=== PATIENT | female | born 1935 | race Caucasian/White ===

== ENCOUNTER → 2016-06-25 | Outpatient (REF) | payer MEDICARE ==
[~2016-06-25] MED LIST: ATEN50TA2 PO; CINA30TA PO; COUM2.5T11 PO; FLOM5CAP PO; MAGN400T5 PO; MULTCAP PO; NATU400T PO; OCUVTAB PO; PERCOCET PO; POTA10TAB PO; SIMV40TA2 PO; TORS5TAB2 PO; XARE15TA PO; ipratropium bromide
[2016-06-25 15:04] LABS: RBC, URINE 15-20 /hpf (0-3)
[2016-06-25 15:05] LABS: BACTERIA, URINE SMALL AMOUNT; HYALINE CAST, URINE 0-1 /lpf (0-1); MICROSCOPIC EXAM PERFORMED; SQUAMOUS EPITHELIAL CELL URINE SMALL AMOUNT /hpf (SMALL AMT)
== END ==
LOC: M LAB REF 13:21
PROVIDERS: ATTEND Nurse Practitioner Family
DX: R31.9 Hematuria, unspecified (principal)

== ENCOUNTER → 2016-07-31 | Outpatient (REF) | payer MEDICARE ==
[2016-07-31 16:01] LABS: ALBUMIN 3.5 GM/DL (3.2-5.2); ALBUMIN/GLOBULIN RATIO 1.06 (1.00-1.93); BILIRUBIN,TOTAL 0.3 MG/DL (0.2-1.0); CREATININE FOR GFR 1.87 MG/DL (0.55-1.02); GLOMERULAR FILTRATION RATE 27.5 (>32); TOTAL PROTEIN 6.8 GM/DL (6.4-8.2)
[2016-07-31 16:14] LABS: MEAN CORPUSCULAR HEMOGLOBIN 32.8 pg (27.0-33.0); MEAN CORPUSCULAR HGB CONC 32.8 g/dl (32.0-36.5); MEAN CORPUSCULAR VOLUME 99.9 fl (80.0-96.0); RED CELL DISTRIBUTION WIDTH 11.6 % (11.5-14.5)
== END ==
LOC: M SFHCPLAZ 11:28
PROVIDERS: ATTEND Family Medicine
DX: N18.3 Chronic kidney disease, stage 3 (moderate) (principal); E78.5 Hyperlipidemia, unspecified

== ENCOUNTER → 2016-10-19 | Outpatient (REF) | payer MEDICARE | LOC: M LAB REF 16:50 | PROVIDERS: ATTEND Internal Medicine Nephrology | DX: N39.0 Urinary tract infection, site not specified (principal) ==

== ENCOUNTER → 2016-10-29 | Outpatient (CLI) | payer MEDICARE ==
--- NOTE | 2016-10-29 17:29 | REP ---
CT abdomen and pelvis without IV or oral contrast: Renal stone protocol. History: Kidney calculus. Comparison CT study March 13, 2013. This showed multiple right renal calculi. 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 The lung bases are essentially clear. The liver and spleen remain normal in size and homogeneous in texture. No adrenal lesion is seen on either side. There is a focal calcification in the tail of the pancreas as before. Multiple bilateral renal cysts are seen. No hydronephrosis is seen. There are five identifiable calcific densities in the right kidney consistent with nephrolithiasis. Some cortical scarring is seen in the right kidney. These findings are essentially unchanged from the comparison CT study 2012. There is a slightly hyperdense cyst at the left mid kidney. This measures 2.4 cm in diameter. This has decreased in size from the [address] study when it measured 3.7 cm. No retroperitoneal mass or adenopathy is observed. There are colon sutures in the right lower abdomen again noted. The patient is status post hysterectomy. No pelvic mass or adenopathy is observed. No abdominal wall defect is seen. No bladder calculus is observed. Impression: 1. Intrarenal nephrolithiasis on the right again noted. No hydronephrosis seen on either side. 2. Multiple bilateral renal cysts. Mild cortical scarring right kidney. 3. No other significant finding. Signed by Donis Martinez MD 10/30/2016 07:54 A
== END ==
LOC: M RAD 16:26
PROVIDERS: ATTEND Internal Medicine Nephrology
DX: N20.0 Calculus of kidney (principal); N28.1 Cyst of kidney, acquired

== ENCOUNTER 2016-11-24 06:28 | Emergency (ER) | payer MEDICARE ==
[~2016-11-24] VITALS: Ht 157.5 cm; Wt 66.7 kg
[~2016-11-24 06:28] MED LIST changes: -COUM2.5T11 PO; +COUM2.5T17 PO
[2016-11-24] MEDS ORDERED: NORCO, ANEXSIA 5/325MG TABLET (HYDROcodone/ACETAMINOPHEN) PO ONE (07:15)
[2016-11-24] MEDS ORDERED: METAL LOCK LOOP XX ONE (08:15)
--- NOTE | 2016-11-24 08:30 | REP ---
Clinical: Pain . Technique: Internal rotation, external rotation, and Y view left shoulder . Findings: No acute fracture or dislocation. The acromioclavicular and glenohumeral joints are intact. No periarticular calcifications or significant degenerative changes are appreciated. Sub acromial space is normal. Surrounding soft tissues are unremarkable. Impression: Normal age-appropriate left shoulder radiographs. Signed by Bc Franks MD 11/24/2016 08:22 A
[2016-11-24] MEDS ORDERED: NORCOTAB PO ×2 (09:10→09:13)
--- NOTE | 2016-11-24 09:11 | REP ---
Clinical: Neck pain. Technique: Axial noncontrast images from the skull base to the thoracic inlet with coronal and sagittal re-formations. Findings: No acute fracture / compression injury or subluxation is appreciated. Alignment is maintained. Advanced degenerative changes at the C4-5, C5-6, C6-7 level include osteophytosis, endplate sclerosis/heterogeneity and disc space narrowing with associated small posterior disc bulges and uncovertebral hypertrophy. Small associated posterior disc bulges at the C5-6 and C6-7 levels cause mild canal stenosis to approximately 8.5 mm in the AP diameter. Moderate degenerative changes are also noted throughout the remainder of the examination without evidence for posterior disc bulge or canal stenosis. Impression: Degenerative changes as described above. Signed by cB Franks MD 11/24/2016 09:03 A
[2016-11-24 09:29] VITALS: BP 128/70
[2017-03-19] MEDS ORDERED: OCUVTAB PO (13:23)
[2017-03-19] MEDS ORDERED: VITA500T88 PO (13:23)
[2017-03-19] MEDS ORDERED: ATEN25TA PO (13:23)
[2017-03-19] MEDS ORDERED: CINA30TA PO (13:23)
[2017-03-19] MEDS ORDERED: POTA10TAB PO (13:23)
[2017-03-19] MEDS ORDERED: SIMV40TA2 PO (13:25)
[2017-03-19] MEDS ORDERED: XARE15TA PO (13:25)
[2017-03-19] MEDS ORDERED: TORS5TAB2 PO (13:25)
== END 2016-11-24 09:30 | disposition home or self-care (01) ==
LOC: M ED 06:28
DX: M50.30 Other cervical disc degeneration, unspecified cervical region (principal); M19.012 Primary osteoarthritis, left shoulder; M79.1 Myalgia; I12.9 Hypertensive chronic kidney disease with stage 1 through stage 4 chronic kidney disease, or unspecified chronic kidney disease; I48.91 Unspecified atrial fibrillation; N18.9 Chronic kidney disease, unspecified; E78.5 Hyperlipidemia, unspecified; Z87.891 Personal history of nicotine dependence; Z79.899 Other long term (current) drug therapy; Z79.01 Long term (current) use of anticoagulants

== ENCOUNTER → 2017-02-12 | Outpatient (REF) | payer MEDICARE ==
[~2017-02-12] MED LIST changes: +ASCO25TA PO; +ATEN25TA PO; +NORCOTAB PO; +VITA500T88 PO
== END ==
LOC: M SFHCADAM 12:03
PROVIDERS: ATTEND Family Medicine
DX: N18.3 Chronic kidney disease, stage 3 (moderate) (principal); E78.5 Hyperlipidemia, unspecified

== ENCOUNTER 2017-02-27 10:49 | Inpatient (IN) | payer MEDICARE ==
[~2017-02-27] VITALS: Ht 157.5 cm; Wt 70.5 kg
[~2017-02-27 10:49] MED LIST changes: -ASCO25TA PO; -ATEN25TA PO; -VITA500T88 PO
[2017-02-27 11:26] LABS: BASO # 0.1 10^3/uL (0.0-0.2); BASO % 0.5 % (0.0-1.0); EOS # 0.1 10^3/uL (0.0-0.50); IMMATURE GRANULOCYTE % 0.2 % (0-0); LYMPH # 1.5 10^3/uL (1.5-4.5); LYMPH % 13.8 % (24.0-44.0); MEAN CORPUSCULAR HEMOGLOBIN 32.4 pg (27.0-33.0); MEAN CORPUSCULAR VOLUME 98.1 fl (80.0-96.0); MONO # 0.9 10^3/uL (0.0-0.8); MONO % 8.3 % (0.0-5.0); NEUTROPHILS # 8.4 10^3/uL (1.8-7.7); NEUTROPHILS % 76.2 % (36.0-66.0); PLATELET COUNT, AUTOMATED 219 10^3/uL (150-450); RED CELL DISTRIBUTION WIDTH 11.9 % (11.5-14.5)
[2017-02-27 11:29] LABS: ADD MANUAL DIFFER NO; DIFF SLIDE NUMBER 208
[2017-02-27 11:34] LABS: INR 1.68
[2017-02-27 11:47] LABS: CALCIUM LEVEL 8.4 MG/DL (8.8-10.2); CREATININE FOR GFR 1.59 MG/DL (0.55-1.02); FREE T4 1.13 NG/DL (0.76-1.46); GLOMERULAR FILTRATION RATE 33.1 (>32); MAGNESIUM LEVEL 2.2 MG/DL (1.8-2.4); POTASSIUM SERUM 4.5 MEQ/L (3.5-5.1)
--- NOTE | 2017-02-27 11:56 | REP ---
Chest x-ray: Single upright AP view. History: Syncope. Comparison study: January 01, 2014. Findings: EKG monitoring electrodes overlie the chest. There is a granulomatous density projecting in the left perihilar region unchanged from the 2014 study. The heart is mildly enlarged unchanged. Pulmonary vasculature is not increased. The aorta is calcific and slightly tortuous. Pleural angles are sharp. No significant bony abnormality. Impression: Mildly enlarged heart. Old granulomatous calcification on the left. No acute disease. Signed by Donis Martinez MD 02/27/2017 01:26 P
--- NOTE | 2017-02-27 11:57 | REP ---
CT Head without contrast HISTORY: Syncope COMPARISON: None Areas of decreased attenuation are present in the periventricular white matter. This represents small-vessel ischemic disease. There is no intraparenchymal hemorrhage, acute infarct, mass or midline shift. The ventricular system and cortical sulci are dilated consistent with minimal volume loss. There is no extra cerebral collection. There is no fracture. The visualized sinuses are clear. IMPRESSION: 1. Small vessel ischemic disease. 2. Minimal volume loss. Signed by Mohinder Ruiz MD 02/27/2017 11:48 A
--- NOTE | 2017-02-27 12:11 | REP ---
CT CERVICAL SPINE WITHOUT CONTRAST: HISTORY: Syncope. COMPARISON: 11/24/2016. There is no acute fracture or subluxation. Disc bulges are present at the C2-3 and C3-4 levels. Disc bulges with associated osteophyte formation are present at the C4-5 through C6-7 levels. There is minimal narrowing of the spinal canal. Uncinate process and/or facet hypertrophy are present at the C2-3 through C7-T1 levels. These findings produce minimal to mild narrowing of the neural foramina. The C4-5 through C6-7 intervertebral discs are decreased in height consistent with disc degeneration. Calcifications are present in the tonsils. This is secondary to previous inflammatory disease. IMPRESSION: 1. There is no acute fracture or subluxation. 2. There is cervical spondylosis at the C2-3 through C7-T1 levels. Signed by Mohinder Ruiz MD 02/27/2017 12:13 P
[2017-02-27] MEDS ORDERED: XARE15TA PO (12:15)
--- NOTE | 2017-02-27 14:07 | HPE ---
DATE OF ADMISSION: 02/27/2017 PRIMARY CARE PROVIDER: Dr. Little [employer]ICE [employer]Y PROGRAM COORDINATOR: Dr. García CHIEF COMPLAINT: Found down. HISTORY OF PRESENT ILLNESS: The patient is an 81-year-old female who lives at home alone. She is known to have memory impairment. Her daughter calls her once a day and checks on her quite frequently, setting up her pill bottle. When the last the patient was checked upon, a lot of her medications had not been taken as prescribed, and the patient told her daughter that she had forgotten to take them. She does not have any home health services. At the present time, she lives alone. The patient herself tells me that she wanted to take her dog for a walk at approximately 10:00 a.m. this morning. She remembers getting a little bit woozy and falling down. She denies chest pressure, shortness of breath prior to the episode. She was reportedly found down by a neighbor with the dog running around the front yard. The dog was put in the house and the patient was awake and conscious although down face first. She was helped up by her neighbor and the patient was brought to the emergency room. In the emergency room at this time, the patient is oriented to place. She knows that she is in the emergency room. She knows her name. Her daughter is present at the bedside with her. The patient believes that it is 2013 and that it is January. She is unable to recall the president's name, however, she knows the day of the week and that it is Saturday. At the present time, she has no specific complaints. She does not feel dizzy or lightheadedness, shortness of breath or chest pressure at the time. She reportedly had one episode of emesis in the ambulance en route. However, at the present time, she denies any nausea. She denies feeling sick at all in the last several days with no change in bladder or bowel habits or any sick contacts or cough. PAST MEDICAL HISTORY: 1. "Memory issues." 2. Chronic kidney disease. 3. Atrial fibrillation. 4. Osteoporosis . 5. Dyslipidemia. 6. Hypertension. 7. History of a collapsed lung. 8. Hemicolectomy. ALLERGIES: REMERON. PAST SURGICAL HISTORY: 1. Total abdominal hysterectomy. 2. Bilateral salpingo-oophorectomy. 3. Appendectomy. 4. Breast lumpectomy. 5. Basal cell skin cancer removal. 6. Multiple colonoscopies with the most recent one in 2008. 7. Right hemicolectomy. 8. Right cataract surgery. SOCIAL HISTORY: She is a never smoker. Healthcare proxy is her daughter Sachi. The patient is retired. Her recently and she lost a son recently as well. HOME MEDICATIONS: - Sensipar 30 mg four times a week - atenolol 50 mg at night - multivitamin one tablet daily - potassium citrate 1080 mg by mouth three times a day - Xarelto 50 mg daily - simvastatin 40 mg at night - Flomax 0.4 mg daily - torsemide 2.5 mg daily FAMILY HISTORY: Noncontributory. REVIEW OF SYSTEMS: Negative other than history of present illness. PHYSICAL EXAMINATION: VITAL SIGNS: Temperature 97.7, pulse 79, respiratory rate 18, blood pressure 164/106, oxygen saturation 92% on room air. GENERAL: She is a pleasant, elderly, female sitting at the edge of the bed. She does not appear to be in any acute distress whatsoever at this time. She is smiling and conversant. Speaks in complete sentences. HEENT: Cranial nerves II through XII appear to be grossly intact. There is no visible evidence of trauma. Normocephalic, atraumatic. She has moist mucous membranes. No elevation in central venous pressure. CARDIOVASCULAR EXAM: S1, S2. Irregularly irregular. No additional heart sounds appreciated. RESPIRATORY EXAM: Clear. ABDOMINAL EXAM: Bowel sounds present. The abdomen is soft. EXTREMITIES: No clubbing, cyanosis, or edema. She is up and ambulating around the room independently. LABORATORY DATA: WBC 11.0, hemoglobin 13.3, MCV 98.1, platelet count 219. Chemistry panel: Sodium 144, potassium 4.5, chloride 109, bicarbonate 29, BUN 24, creatinine 1.5, approximately at her baseline. One set of cardiac enzymes is negative. She has a TSH within normal limits. IMAGING: CT scan of the head revealed small vessel ischemic disease, minimal volume loss. Chest x-ray revealed mildly enlarged heart. Old granulomatous calcifications on the left. No acute disease. Cervical spine CT revealed no acute fracture, subluxation. Cervical spondylosis of C2-3 through C7-T1. ASSESSMENT AND PLAN: This is an 81-year-old female status post unwitnessed syncopal episode. 1. Unwitnessed syncope. The etiology remains unclear. She has not been taking medication regularly. She has memory impairment. She does not remember the incident quite well. As such, she is being admitted to the progressive care unit (PCU). She has a history of atrial fibrillation. We will monitor her for pauses or bradyarrhythmias. Continue with her rate control with holding parameters. I will also check a MRI of the brain and recheck an EKG in the morning. Have her work with physical therapy (PT). Patient and family services (PFS) consult was placed. I think she would benefit from potential home services. Echocardiogram has been ordered as well. It is certainly possible that she may have inadvertently taken the wrong medication or wrong dosage, which could be causing this event. We will check orthostatic vital signs as well. 2. Memory issues. The patient would likely benefit from more help at home at the very least. She is mildly disoriented, as outlined in the history of present illness. She likely has dementia. She denies depression. Rule out other possible etiologies. Check RPR, B12, MRI of the brain, liver function tests. 3. Chronic kidney disease. Approximately at her baseline. Continue with her home diuretic and potassium supplementation. The patient has secondary hyperparathyroidism. 4. Atrial fibrillation. As outlined above she is on atenolol. She is anticoagulated with Xarelto. Pending physical therapy (PT) evaluation. If she continues to be a fall risk, we may need to weigh risks and benefits for continuing anticoagulation. 5. Bladder dysfunction. Continue with Flomax. 6. Dyslipidemia. Continue with simvastatin. 7. Deep vein thrombosis (DVT) prophylaxis. The patient is on Xarelto. DISPOSITION: The patient is admitted to Dr. Little's service, who will continue following the patient at 7:00 a.m.
[2017-02-27 14:23] LABS: ALBUMIN 3.4 GM/DL (3.2-5.2); ALBUMIN/GLOBULIN RATIO 0.97 (1.00-1.93); ALKALINE PHOSPHATASE 100 U/L (45-117); ALT/SGPT 33 U/L (12-78); AST/SGOT 64 U/L (15-37); BILIRUBIN,DIRECT 0.1 MG/DL (0.0-0.2); BILIRUBIN,TOTAL 0.4 MG/DL (0.2-1.0); TOTAL PROTEIN 6.9 GM/DL (6.4-8.2)
[2017-02-27 14:40] LABS: FOLATE 22.8 NG/ML (>5.4); VITAMIN B12 LEVEL 451 PG/ML (247-911)
[2017-02-27 15:04] LABS: METHADONE URINE NEGATIVE (NEGATIVE)
[2017-02-27 16:00] VITALS: BP_SYST 126; BP_SYST 134; BP_SYST 78; BP_DIAS 141; BP_DIAS 60; BP_DIAS 76
[2017-02-27] MEDS: ACETAMINOPHEN TAB 650MG DOSE (2X325MG) PO PRN (18:22)
[2017-02-27 20:00] VITALS: BP 124/60
[2017-02-27] MEDS: SIMVASTATIN 40 MG TAB PO SCH (20:09)
[2017-02-27] MEDS: POTASSIUM CITRATE 1080 MG (10MEQ) TAB PO SCH (20:09)
[2017-02-27] MEDS ORDERED: ATENOLOL 50 MG TAB PO SCH (21:00)
--- NOTE | 2017-02-27 23:30 | REPUSA ---
MRI of the brain Clinical history: memory changes. Technique: Multiecho multiplanar MRI images of the brain were obtained without administration of cont rast. Diffusion weighted images with ADC mapping was also obtained. Findings: The ventricles and sulci are symmetric bilaterally. The brain parenchyma demonstrates uniform and nor mal signal on all sequences. There is no midline shift, mass effect, or extra-axial fluid collection. The midline intracranial structures do not demonstrate any gross abnormalities. The cervical cranial junction is intact. The orbits are unremarkable. The visualized paranasal sinuses and mastoid air ce lls are clear. The osseous structures and superficial soft tissues are unremarkable. The vascular str uctures demonstrate appropriate flow voids. Impression: Normal MRI of the Brain.
[2017-02-28] VITALS: BP_SYST 124; BP_SYST 145; BP_SYST 155; BP_DIAS 60; BP_DIAS 71; BP_DIAS 75
[2017-02-28 00:50] LABS: CALCIUM LEVEL 8.3 MG/DL (8.8-10.2); CREATININE FOR GFR 1.63 MG/DL (0.55-1.02); GLOMERULAR FILTRATION RATE 32.2 (>32)
[2017-02-28] MEDS: ACETAMINOPHEN TAB 650MG DOSE (2X325MG) PO PRN (01:52)
[2017-02-28 02:08] LABS: ABG BASE EXCESS 3.3 (-2.0-2.0); ABG HCO3 26.2 MEQ/L (22.0-26.0); ABG PARTIAL PRESSURE CO2 34.6 mmHg (35.0-45.0); ABG PARTIAL PRESSURE O2 72.3 mmHg (75.0-100.0); ABG STANDARD HCO3 27.3 MEQ/L (22.0-26.0); ABG TOTAL CO2 27.3 MEQ/L (23.0-31.0); ABG pH (ARTERIAL) 7.497 UNITS (7.350-7.450)
[2017-02-28 04:00] VITALS: BP 104/71
[2017-02-28 05:44] LABS: MEAN CORPUSCULAR HEMOGLOBIN 31.7 pg (27.0-33.0); MEAN CORPUSCULAR HGB CONC 32.6 g/dl (32.0-36.5); MEAN CORPUSCULAR VOLUME 97.1 fl (80.0-96.0); RED CELL DISTRIBUTION WIDTH 11.9 % (11.5-14.5); WHITE BLOOD COUNT 9.2 10^3/uL (4.0-10.0)
[2017-02-28 06:12] LABS: CALCIUM LEVEL 8.1 MG/DL (8.8-10.2); CREATININE FOR GFR 1.58 MG/DL (0.55-1.02); GLOMERULAR FILTRATION RATE 33.3 (>32); POTASSIUM SERUM 4.3 MEQ/L (3.5-5.1)
[2017-02-28 08:00] VITALS: BP 133/75
[2017-02-28] MEDS ORDERED: RIVAROXABAN 15 MG TAB (XARELTO) PO SCH (09:00)
[2017-02-28] MEDS ORDERED: TAMSULOSIN 0.4 MG CAP PO SCH (09:00)
[2017-02-28] MEDS: TORSEMIDE 5MG TABLET PO SCH (09:58)
[2017-02-28] MEDS: OCUVITE 1 TAB PO SCH (09:59)
[2017-02-28] MEDS: POTASSIUM CITRATE 1080 MG (10MEQ) TAB PO SCH ×3 (09:59→20:44)
[2017-02-28 12:00] VITALS: BP_SYST 114; BP_SYST 138; BP_SYST 143; BP_DIAS 81; BP_DIAS 88; BP_DIAS 95
--- NOTE | 2017-02-28 12:09 | IPN ---
DATE: 02/28/2017 Queenie is seen in the progressive care unit (PCU). She is admitted with syncope. She was out walking her dog and was found face down after suddenly collapsing. She has no memory of this. Apparently, someone saw her from a distance go down. On telemetry, she has had a 2.6 second pause. Past medical history shows atrial fibrillation. She had a Holter monitor 02/05/2017. Heart rates generally were well controlled. She is on atenolol for rate control and Xarelto for thromboembolic prophylaxis. She has a history of hypertension, chronic kidney disease Stage III followed by Dr. García, memory loss of mini mental status exam score of 27 over 30 last done 03/10/2017. Physical Exam: 133/75. Pulse 65. Respiratory rate 18. 96% oxygen saturation. General Appearance: She is resting comfortably in bed. No jugular venous distention (JVD). Lungs clear. Heart regular rate and rhythm. Rate around 70. Abdomen soft, nontender, no masses. No peripheral edema. Labs: Reviewed. They were unremarkable. Telemetry was reviewed. She had a 2.6 second pause. IMPRESSION: Syncope, probably from bradycardia/tachybrady syndrome. PLAN: 1. Consult [facility]. They have followed her previously. Will stop the atenolol. Monitor her heart rate off of this. She may well need pacemaker for bradycardia and atenolol or other beta jeniffer to control tachycardia. Her underlying rhythm is atrial fibrillation. Continue Xarelto for thromboembolic prophylaxis until decision is made about pacemaker. 2. Hyperlipidemia. Continue her Zocor 40 mg daily. 3. Mild memory loss. She is competent to make her own decisions.
[2017-02-28 16:00] VITALS: BP 140/84
--- NOTE | 2017-02-28 17:32 | CR ---
DATE OF CONSULTATION: 02/28/2017 REASON FOR CONSULTATION: 1. Syncope. 2. Tachycardia-bradycardia syndrome. REFERRING PHYSICIAN: Dr. Jose Guadalupe Little HISTORY OF THE PRESENT ILLNESS: Queenie Eric is a pleasant 81-year-old woman who has longstanding persistent atrial fibrillation (chronic atrial fibrillation) for several years. She is maintained on atenolol for heart rate control and on Xarelto. On the morning of 02/27/2017, she had sudden loss of consciousness without any warning that she could recall. She was found by a bystander and emergency medical services (EMS) services was called. On telemetry in the progressive care unit today, she was noted to have a 2.64 second pause at 10:56 a.m. today (02/28/2017). Consequently, atenolol was placed on hold and cardiology consultation was placed for consideration of a permanent pacemaker for tachycardia-bradycardia syndrome. The patient reports that this is the first time and only time that she has ever lost consciousness. There was no preceding prodrome that she could recall. She did not sustain any significant injuries. She is fairly sedentary but denies any shortness of breath during her ordinary activities of daily living. No orthopnea or paroxysmal nocturnal dyspnea (PND). No leg or ankle swelling. She denies any chest pain, pressure, tightness, heaviness with or without activity. No palpitations. No embolic events. No intermittent claudication. No bleeding problems. OTHER PAST MEDICAL AND SURGICAL HISTORY: Mild dementia. Chronic kidney disease. Chronic atrial fibrillation. Osteoporosis. Dyslipidemia. Systemic hypertension. History of collapsed lung. Hemicolectomy. Total abdominal hysterectomy. Bilateral salpingo-oophorectomy. Status post appendectomy. Prior breast lumpectomy. Removal of basal cell carcinoma. Multiple colonoscopies, the last of which was in 2008. Right hemicolectomy. Right cataract surgery. Kidney stones. PRIOR NONINVASIVE CARDIAC STRESS TESTING SUMMARIZED FOLLOWS: Treadmill stress SPECT myocardial perfusion imaging study for evaluation of abnormal ECG performed December 2009 showed reduced exercise capacity with patient attaining only 5.8 METs, limited by dyspnea and leg fatigue. No anginal symptoms. ECG portion was inconclusive due to presence of baseline repolarization abnormalities. Normal stress SPECT myocardial perfusion. Normal pulmonary uptake at peak exercise. Normal left ventricular (LV) regional wall motion and LV systolic function. Holter monitor, 02/13/2017, while on atenolol 50 mg daily showed atrial fibrillation throughout with heart rate ranging from 61 to 134 beats per minute (BPM) with average heart rate of 80 BPM and no R-R intervals in excess of 2.0 seconds. Rare premature ventricular contractions (PVCs) including a few couplets and one ventricular couplet. Echocardiogram Doppler 02/15/2015 showed normal LV size, wall thickness and wall motion. Slightly dilated left atrium. Moderate mitral annular calcification without mitral stenosis; presence of moderate mitral regurgitation. Normal right atrial and right ventricular size. Suggestive of moderate elevation of pulmonary artery pressure. Moderate tricuspid regurgitation. Estimated RV systolic pressure 40 mmHg. Additional other past history apparently includes hyperparathyroidism and diastolic heart failure. MEDICATIONS PRIOR TO ADMISSION: - atenolol 50 mg nightly - Sensipar 30 mg four times per week - multivitamin one daily - potassium citrate 1080 mg three times a day - Xarelto 15 mg daily - simvastatin 40 mg nightly - tamsulosin 0.4 mg daily - torsemide 2.5 mg daily PATIENT'S CURRENT MEDICATIONS IN THE HOSPITAL ARE FOLLOWS: - atenolol 50 mg nightly is presently on hold (last dose at 8:10 p.m. on 02/27/2017). - multivitamin one daily - Xarelto 15 mg daily (last dose 02/28/2017 at 9:59 a.m.) - tamsulosin 0.4 mg daily - torsemide 2.5 mg daily - potassium citrate 1080 mg by mouth three times a day - simvastatin 40 mg nightly - acetaminophen 650 mg every 6 hours as needed FAMILY HISTORY: Premature coronary artery disease (mother of heart disease at age 59). SOCIAL HISTORY: . Lives alone. Retired. Independent with all activities of daily living. Lifetime nonsmoker. Rare intake of alcohol. No regular exercise. She is able to do housework. She is limited by fatigue and shortness of breath only if she attempts strenuous activity. REVIEW OF SYSTEMS: Wears glasses. Prior right cataract surgery. No cough, sputum or hemoptysis. No wheezes. Arthralgias and arthritis. No anxiety, panic attacks or depression. All other 10-point review of systems questions negative other than history of the present illness above. PHYSICAL EXAMINATION: Pleasant elderly woman who appears her chronologic age, who is not in any respiratory or psychologic distress. She appears overweight. Height 62 inches, weight 69.2 kg, body mass index (BMI) 27.9. No conjunctival pallor, scleral icterus or xanthomas. Some missing teeth and multiple dental fillings present. Oral mucosa was moist and without pallor or cyanosis. Jugular venous pulsations were at 3 cm. Trachea midline. No palpable thyroid. No clubbing, nail bed cyanosis, or splinter hemorrhages. No skin lesions, skin pallor, or icterus. Oriented to person, place and time. Mood and affect was normal. Curvature of the spine normal. Gait was not fully tested (patient on bed rest). Gross motor strength and tone normal. No abnormal muscle atrophy, fasciculations, or tremors. Respiratory expansion effort was good. No crackles or wheezes. No dullness to percussion. No palpable apex beat. No left parasternal lifts, heaves, thrills, or palpable heart sounds. First heart sound is variable in intensity. Second heart sound was normal. No S3 or murmurs are appreciated. No pericardial friction rubs. Carotids were normal in upstroke and volume. No carotid bruits. No palpable abdominal aorta. No abdominal bruits. Femoral pulses normal. Pedal pulses normal. No lower extremity edema. No varicose veins. Abdomen was mildly obese and was soft and nontender with normal bowel sounds. No hepatomegaly or splenomegaly by palpation. Liver span difficult to assess due to abdominal obesity. Stool for occult blood not presently indicated. Electrocardiogram 02/27/2017 at 11:01 a.m. shows atrial fibrillation, ventricular rate 72 beats per minute. I have independently visualized the patient's PA and lateral chest x-ray acquired 02/27/2017 at 11:31 a.m. It shows mild cardiomegaly. Calcification in the aortic arch. No pulmonary vascular redistribution. No interstitial or alveolar edema. No pleural effusions. Lung mason were clear and well inflated. Laboratory work 02/28/2017 shows WBC 9.2, hemoglobin 13.3, hematocrit 40.8, platelets 211. Sodium 144, potassium 4.3, chloride 106, CO2 31, BUN 24, creatinine 1.58, estimated GFR 33.3, glucose 89. Laboratory work 02/27/2017 shows TSH 1.930. ASSESSMENT AND PLAN: 1. Syncope. This patient's syncope is most likely due to tachycardia-bradycardia syndrome, especially in view of documentation of an R-R interval of 2.64 seconds observed earlier today while she was awake. 2. Sick sinus syndrome/tachycardia-bradycardia syndrome. This patient has ongoing need for negative dromotropic agents to control rapid ventricular response, and she has now been observed to have long pauses and just recently had an episode of syncope. Therefore, because of ongoing medical necessity for negative dromotropic agents, she should undergo implantation of a single permanent pacemaker. This was discussed with the patient, and she understands. The risks of pacemaker implantation were explained to the patient, including, but not all inclusive, infection (1%), bleeding, pneumothorax (1%), cardiac dysrhythmias, and cardiac perforation with cardiac tamponade (07/999). The patient was agreeable and signed the consent form. Xarelto will be held for 3 days prior to operating. She will then receive a single-chamber permanent pacemaker. 3. Longstanding persistent atrial fibrillation. The patient has chronic atrial fibrillation for several years. She is not bothered by any palpitations. No bleeding problems on Xarelto. The plan will be to restart Xarelto when safe to do so following implantation of the permanent pacemaker. She will continue on atenolol unless she has further pauses that exceed 4.0 seconds. 4. Nonrheumatic mitral valve regurgitation with previous documentation of moderate mitral regurgitation. Stable. 5. Systemic hypertension. Mildly elevated systolic blood pressures documented in hospital on a few occasions. On 02/27/2017, she was documented to have absence of any significant orthostatic blood pressure drop. I will restart atenolol unless she has recurrent pauses in excess of 4.0 seconds. I am really at a loss for why she is on tamsulosin, and I will discontinue this agent. Copies To: Dr. Chace Little
--- NOTE | 2017-02-28 19:23 | ECGEPIP ---
Stationary ECG Study [facility] Test Date: 2017-02-28 Pat Name: CHRIS WARREN Department: Room: [place] [address] Gender: F Event Organizer: CHRISTOPHER : [id number] Requested By: KAMRAN WAHL Order Number: [id number] Reading MD: Rosy Mendes Measurements Intervals [place] Rate: 70 P: [place]: 0 QRS: 29 QRSD: 86 T: 8 QT: 402 QTc: 434 Interpretive Statements ATRIAL FIBRILLATION ABNORMAL RHYTHM ECG SIMILAR 01/01/14 Electronically Signed On 02-28-2017 19:23:23 EDT by Rosy Mendes
--- NOTE | 2017-02-28 20:18 | ECHO ---
DATE OF PROCEDURE: 02/28/2017 REFERRING PHYSICIAN: Claudia Gonzalez MD CC: Dr. Jose Guadalupe Little CC: Dr. Chace Javier INDICATION: Syncope. HEIGHT: 62 inches WEIGHT: 152 pounds 2D MEASUREMENTS: Aortic root: 3.3 cm Proximal ascending aorta: 2.7 cm Left atrium: 4.4 cm Ventricular septum: 1.10 cm Posterior wall: 1.06 cm Left ventricle diastole: 4.0 cm Left ventricle systole: 2.3 cm LVOT: 2.1 cm Right ventricle: 4.2 cm Left atrial volume index: 49 mL/m2 Inferior vena cava: 1.8 cm DOPPLER MEASUREMENTS: Aortic valve velocity: 144 cm/s LVOT velocity: 85.0 cm/s LVOT VTI: 16.3 cm Moderate tricuspid regurgitation. Estimated right ventricle systolic pressure 48 mmHg assuming a right atrial pressure of 10 mmHg. Pulmonary acceleration time 165 ms. MITRAL ANNULAR TISSUE DOPPLER: E prime septal: 8.2 cm/s E prime lateral: 10.3 cm/s DESCRIPTION: Rhythm was atrial fibrillation with controlled ventricular response. This was a 2D, M-mode, color flow Doppler and pulse wave Doppler examination that included mitral annular tissue Doppler. No pericardial effusion. Image quality was fair. CONCLUSIONS: 1. Normal left ventricle internal dimensions and wall thickness. Normal regional left ventricle (LV) wall motion and wall thickening. Normal left ventricle (LV) systolic function. 2. Severe left atrial dilatation. 3. Mild mitral annular calcification. No mitral regurgitation. 4. Suggestive of moderate elevation of estimated right ventricle systolic pressure (48 mmHg). Moderate tricuspid regurgitation with structurally normal tricuspid leaflets. Normal right ventricle size and systolic function. Severe right atrial dilatation.
[2017-02-28 20:29] VITALS: BP_SYST 118; BP_SYST 120; BP_SYST 123; BP_DIAS 66; BP_DIAS 67; BP_DIAS 68
[2017-02-28] MEDS: SIMVASTATIN 40 MG TAB PO SCH (20:44)
[2017-02-28] MEDS: ATENOLOL 25 MG TAB PO SCH (20:45)
[2017-03-01] VITALS (9 sets, daily range): BP systolic 107–137; BP diastolic 58–82
[2017-03-01] MEDS ORDERED: SLF 3 ML SYR IV PRN (04:00)
--- NOTE | 2017-03-01 05:44 | ECGEPIP ---
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
[2017-03-01 06:10] LABS: MEAN CORPUSCULAR HEMOGLOBIN 31.7 pg (27.0-33.0); MEAN CORPUSCULAR HGB CONC 32.5 g/dl (32.0-36.5); MEAN CORPUSCULAR VOLUME 97.7 fl (80.0-96.0); RED CELL DISTRIBUTION WIDTH 11.9 % (11.5-14.5); WHITE BLOOD COUNT 7.9 10^3/uL (4.0-10.0)
[2017-03-01] MEDS: SLF 3 ML SYR IV SCH ×3 (06:29→21:42)
[2017-03-01 06:39] LABS: CALCIUM LEVEL 8.5 MG/DL (8.8-10.2); CREATININE FOR GFR 1.54 MG/DL (0.55-1.02); GLOMERULAR FILTRATION RATE 34.3 (>32); POTASSIUM SERUM 4.4 MEQ/L (3.5-5.1)
[2017-03-01] MEDS: OCUVITE 1 TAB PO SCH (11:12)
[2017-03-01] MEDS: TORSEMIDE 5MG TABLET PO SCH (11:12)
[2017-03-01] MEDS: POTASSIUM CITRATE 1080 MG (10MEQ) TAB PO SCH ×3 (11:13→21:41)
[2017-03-01] MEDS: ATENOLOL 25 MG TAB PO SCH ×2 (11:16→21:41)
--- NOTE | 2017-03-01 14:18 | IPN ---
DATE: 03/01/2017 Queenie is seen in the progressive care unit (PCU). She has had no recurrence of syncope. She was seen by Dr. Javier, appreciate his consultation. He agreed with need for a pacemaker. I met with the patient's daughter at length today. She has concerns about the patient's developing dementia, which we can deal with as an outpatient. Exam: Vital signs stable. Lungs clear. Heart regular without murmur. Abdomen soft, nontender. No masses. No peripheral edema. Telemetry was reviewed. Lab work stable from yesterday. IMPRESSION: 1. Tachybrady syndrome with syncope. Xarelto is on hold. Pacemaker planned after she has been off Xarelto for three days. 2. Atrial fibrillation. She will be able to restart her atenolol and Xarelto after pacemaker. 3. Dementia. We can deal with this as an outpatient. 4. Hypertension. Her atenolol has been restarted. Blood pressure is under good control.
[2017-03-01] MEDS: SIMVASTATIN 40 MG TAB PO SCH (21:41)
[2017-03-02 04:00] VITALS: BP 126/59
[2017-03-02 05:39] LABS: MEAN CORPUSCULAR HEMOGLOBIN 31.8 pg (27.0-33.0); MEAN CORPUSCULAR HGB CONC 32.6 g/dl (32.0-36.5); MEAN CORPUSCULAR VOLUME 97.6 fl (80.0-96.0); RED CELL DISTRIBUTION WIDTH 11.7 % (11.5-14.5); WHITE BLOOD COUNT 8.6 10^3/uL (4.0-10.0)
[2017-03-02 05:57] LABS: CALCIUM LEVEL 8.4 MG/DL (8.8-10.2); CREATININE FOR GFR 1.36 MG/DL (0.55-1.02); GLOMERULAR FILTRATION RATE 39.6 (>32); POTASSIUM SERUM 4.7 MEQ/L (3.5-5.1)
[2017-03-02] MEDS: SLF 3 ML SYR IV SCH ×3 (06:38→20:49)
[2017-03-02 08:10] VITALS: BP_SYST 135; BP_SYST 140; BP_DIAS 72; BP_DIAS 76; BP_DIAS 79
[2017-03-02] MEDS: ATENOLOL 25 MG TAB PO SCH ×2 (09:00→20:48)
[2017-03-02] MEDS: POTASSIUM CITRATE 1080 MG (10MEQ) TAB PO SCH ×3 (09:07→20:47)
[2017-03-02] MEDS: OCUVITE 1 TAB PO SCH (09:07)
[2017-03-02] MEDS: TORSEMIDE 5MG TABLET PO SCH (09:07)
[2017-03-02 12:15] VITALS: BP 141/79
[2017-03-02 16:00] VITALS: BP_SYST 134; BP_SYST 142; BP_SYST 156; BP_DIAS 67; BP_DIAS 83; BP_DIAS 84
[2017-03-02 20:00] VITALS: BP 142/70
[2017-03-02] MEDS: SIMVASTATIN 40 MG TAB PO SCH (20:48)
--- NOTE | 2017-03-02 21:10 | IPNPDOC ---
Subjective Date Seen The patient was seen on 03/02/17. Subjective Chief Complaint/HPI The patient is a 81-year-old female admitted with a reason for visit of Syncope. Events since last encounter She reports she been symptomatically stable today. She believes that her pacer will be placed tomorrow and she is a little anxious about this. She has no other acute complaints. General: Reports: Normal Appetite Pulmonary: Denies: Cough Cardiovascular: Denies: Chest Pain, Palpitations Hematologic: Denies: Bruising, Bleeding Excessively Psych: Reports: Mood Normal Objective Physical Examination General Exam: Positive: Alert, Cooperative, No Acute Distress Eye Exam: Positive: Conjunctiva & lids normal, Negative: Sclera icteric ENT Exam: Positive: Mucous membr. moist/pink Neck Exam: Negative: Lymphadenopathy Chest Exam: Positive: Clear to auscultation, Normal air movement Heart Exam: Positive: Rate Normal, Normal S1, Normal S2 Abdomen Exam: Positive: Normal bowel sounds, Soft, Negative: Tenderness Extremity Exam: Negative: Edema Psych Exam: Positive: Mood NL, Oriented x 3 Assessment /Plan Problems (1) Tachycardia-bradycardia syndrome Discussed With: Patient Problem Specific Plan: Consult Specialist Problem Text: She'll be having a pacemaker placed with Dr. Javier when she is off Xarelto for 3 days. That is likely to be tomorrow. (2) Atrial fibrillation Status: Chronic Response to Treatment: Stable Problem Text: She honestly sounded like she was in sinus rhythm to me today, however, auscultation is not an appropriate way to assess that. She certainly is at a reasonable rate right now. (3) Dementia Problem Text: She may have early dementia. This concern was raised by her daughter on admission. It will be dealt with in the outpatient setting by her primary care provider. (4) Hypertension Status: Chronic Response to Treatment: Controlled Problem Text: Reasonably controlled. Her atenolol has been restarted. Plan/VTE VTE Prophylaxis Ordered?: Yes (SCDs and TEDS) VTE Exclusion Pharmacological: Other (she is coming off Xarelto for a procedure ) VS, I&O, 24H, Fishbone Vital Signs/I&O Vital Signs Date Time Temp Pulse Resp B/P (MAP) Pulse Ox O2 Delivery O2 Flow Rate FiO2 03/02/17 20:48 93 142/70 03/02/17 20:00 98.3 20 97 Room Air I&O- Last 24 Hours up to 6 AM 03/03/17 05:59 Intake Total 1140 ml Output Total 350 ml Balance 790 ml Laboratory Data 24H LABS Laboratory Tests 2 03/02/17 04:50: Anion Gap 4L, Glomerular Filtration Rate 39.6, Blood Urea Nitrogen 29H, Creatinine 1.36H, Sodium Level 143, Potassium Level 4.7, Chloride Level 108H, Carbon Dioxide Level 31, Calcium Level 8.4L CBC/BMP Laboratory Tests 03/02/17 04:50 Red Blood Count 4.24, Mean Corpuscular Volume 97.6 H, Mean Corpuscular Hemoglobin 31.8, Mean Corpuscular Hemoglobin Concent 32.6, Red Cell Distribution Width 11.7, Calcium Level 8.4 L Microbiology Microbiology 02/27/17 Blood Culture - Preliminary, Resulted No Growth after 72 hours. All specime... 02/27/17 Blood Culture - Preliminary, Resulted No Growth after 72 hours. All specime... 02/27/17 Urine Culture - Final, Complete Osmar Michele MD Mar 02, 2017 21:10
[2017-03-02 23:59] VITALS: BP_SYST 117; BP_SYST 136; BP_SYST 154; BP_DIAS 67; BP_DIAS 72; BP_DIAS 78
[2017-03-03] VITALS (11 sets, daily range): BP systolic 121–160; BP diastolic 59–93
[2017-03-03 05:42] LABS: MEAN CORPUSCULAR HEMOGLOBIN 31.7 pg (27.0-33.0); MEAN CORPUSCULAR HGB CONC 32.5 g/dl (32.0-36.5); MEAN CORPUSCULAR VOLUME 97.6 fl (80.0-96.0); RED CELL DISTRIBUTION WIDTH 11.6 % (11.5-14.5); WHITE BLOOD COUNT 8.4 10^3/uL (4.0-10.0)
[2017-03-03 05:56] LABS: CALCIUM LEVEL 8.7 MG/DL (8.8-10.2); CREATININE FOR GFR 1.43 MG/DL (0.55-1.02); GLOMERULAR FILTRATION RATE 37.4 (>32); POTASSIUM SERUM 5.1 MEQ/L (3.5-5.1)
[2017-03-03] MEDS: SLF 3 ML SYR IV SCH ×3 (06:57→22:00)
[2017-03-03] MEDS ORDERED: LIDOCAINE 1% SDV INJ 30 ML VIAL As Ordered ONE (07:55)
[2017-03-03] MEDS ORDERED: ISOVUE-300 61% 50ML VIAL (Q9967) As Ordered ONE (07:55)
[2017-03-03] MEDS ORDERED: MIDAZOLAM INJ 2 MG/2 ML VIAL (J2250) As Ordered ONE (09:32)
[2017-03-03] MEDS ORDERED: LIDOCAINE 2% INJ 100 MG/5 ML SDV (FOR ANES.) As Ordered ONE (09:32)
[2017-03-03] MEDS ORDERED: fentaNYL 100 MCG/2 ML INJECTION (J3010) As Ordered ONE (09:32)
[2017-03-03] MEDS ORDERED: PROPOFOL 200 MG/20 ML VIAL As Ordered ONE (09:32)
[2017-03-03] MEDS ORDERED: MUPIROCIN 2% OINT 22 GM TUBE As Ordered ONE (09:33)
[2017-03-03] MEDS: POTASSIUM CITRATE 1080 MG (10MEQ) TAB PO SCH ×3 (11:19→21:03)
[2017-03-03] MEDS: OCUVITE 1 TAB PO SCH (11:20)
[2017-03-03] MEDS: TORSEMIDE 5MG TABLET PO SCH (11:21)
[2017-03-03] MEDS: ATENOLOL 25 MG TAB PO SCH ×2 (11:22→21:05)
[2017-03-03] MEDS: ASCORBIC ACID 250 MG TAB PO SCH ×2 (11:22→21:03)
--- NOTE | 2017-03-03 11:43 | RO ---
DATE OF OPERATION: 03/03/2017 PREOPERATIVE DIAGNOSIS: Tachycardia-bradycardia syndrome. POSTPROCEDURE DIAGNOSIS: Tachycardia-bradycardia syndrome. FINDINGS: Tachycardia-bradycardia syndrome. PROCEDURE PERFORMED: Implantation of a single-chamber MRI safe permanent pacemaker (Anagear). SURGEON: Chace Javier MD PINBALL MACHINE REPAIRER: None. ANESTHESIA: Lidocaine 1% local anesthetic/monitored anesthetic care. No specimens. Estimated blood loss: Less than 5 mL. No blood products replaced. No drains. No complications. PROCEDURE DESCRIPTION: Patient was prepped and draped over the left pectoral region. 3M Ioban film was applied. Lidocaine 1% was used for local anesthetic. A left subclavian venogram was performed using a mixture of two-thirds contrast with one-third normal saline (2:1 ratio) with a total volume of 20 mL injected via an IV in the left antecubital vein. Using fluoroscopy in real-time during the contrast injection, the extrathoracic portion of the left subclavian vein was entered with a micropuncture needle by percutaneous technique. This was then guidewire exchanged with the guidewire that came with the 6-Mexican sheath. introducers. Next, an incision approximately 2-1/2 inches in length was made 1 cm below the entry site of the guidewire using a PEAK PlasmaBlade. The PEAK PlasmaBlade was used to get through the fatty layer and the fibrous Berna's fascia. The pacemaker pocket was then formed in a caudal direction using blunt dissection using two fingers to separate the prepectoral fascia from the Berna's fascia. This created the pacemaker pocket. Next, the guidewire was pulled through the skin into the incision site. Next, a 6-Mexican sheath introducer was applied over the guidewire. The 6-Mexican sheath was used for vein access for the ventricular pacemaker lead. The ventricular pacemaker lead was placed under fluoroscopic guidance into the region of the right ventricle apex where it was secured with a total of 12 turns. This position was found to be electrically and anatomically satisfactory. No diaphragm stimulation could be palpated on either side at 10 volts high output. Next, the ventricular lead was secured to the pectoral muscle using the supplied tie-down sleeve using two individual sutures consisting #0 Ethibond to secure it to the pectoral muscle. Next, #0 Ethibond suture was placed to the pectoral muscle to serve as the tie-down for the pacemaker pulse generator. The terminal pin of the pacemaker lead was placed into the pacemaker pulse generator and secured to by tightening the setscrew with the hex screwdriver. Next, the excess lead material was then coiled underneath the pacemaker pulse generator and placed into the pacemaker pocket along with the pacemaker pulse generator (pulse generator on top, coiled material below). The pacemaker pulse generator was then secured to the pectoral muscle using the previously placed #0 Ethibond suture to secure it to the pectoral muscle. The deep layer was closed using individual sutures consisting of #2-0 Vicryl. The more superficial layer was approximated using individual sutures consisting #3-0 Vicryl. The skin was closed using christina. The pacemaker pulse generator implanted was a Anagear Accolade MRI SR, model L310 with serial #[id number] with an IS-1 header. The pacemaker lead implanted was a [employer] Luxanovaevity MRI, model 7742, 59 cm length with serial #[id number]. Testing of the ventricle lead with the PSA analyzer showed R amplitude of 8.8 mV with lead impedance of 836 ohms and a capture threshold of 0.8 volts at 0.4 ms. Device-based measurements in the operating room showed R wave amplitude of 13.1 mV with a capture of 0.8 volts at 0.4 ms and lead impedance of 773 ohms. All of these were in bipolar configuration for both pace and sense.
--- NOTE | 2017-03-03 11:43 | REP ---
2 minutes 21 seconds of fluoroscopy time was provided to Dr. Javier during pacemaker device insertion. A single spot view shows a single chamber bipolar pacemaker device, which appears contiguous and appropriate. Signed by Jones Aiken DO 03/03/2017 10:56 A
--- NOTE | 2017-03-03 11:43 | REP ---
REASON: Status post pacemaker insertion. COMPARISON: 02/27/2017 The technique utilized in obtaining the radiograph has magnified the cardiac silhouette and accentuated the interstitial markings. Cardiomediastinal silhouette and lung mason are unchanged. There is a single chamber bipolar pacemaker device in place, the lead is appropriate and contiguous. There is no change in the osseous structures. IMPRESSION: Status post pacemaker insertion as described above. Otherwise, no change from the prior exam and no evidence of acute cardiopulmonary disease. Signed by Jones Aiken DO 03/03/2017 11:07 A
[2017-03-03] MEDS: ACETAMINOPHEN TAB 650MG DOSE (2X325MG) PO PRN ×2 (12:32→21:03)
--- NOTE | 2017-03-03 17:58 | IPNPDOC ---
Subjective Date Seen The patient was seen on 03/03/17. Subjective Chief Complaint/HPI The patient is a 81-year-old female admitted with a reason for visit of Syncope. Events since last encounter Ms. Eric had her pacer placed today by Dr. Javier. I spoke to him briefly after the procedure and he reports that it was uneventful. She reports that she is feeling fine. She does have trouble remembering not to remove her left arm too much. Constitutional: Denies: Chills, Fever Pulmonary: Denies: Dyspnea, Cough, Pleuritic Chest Pain Cardiovascular: Denies: Chest Pain, Palpitations Gastrointestinal: Denies: Nausea, Vomiting Psych: Reports: Mood Normal, Memory Issues Objective Physical Examination General Exam: Positive: Alert, Cooperative, No Acute Distress Eye Exam: Positive: Conjunctiva & lids normal, Negative: Sclera icteric ENT Exam: Positive: Mucous membr. moist/pink Neck Exam: Positive: Supple, Negative: Lymphadenopathy Chest Exam: Positive: Clear to auscultation, Normal air movement, Other (there is now a pacer pocket in her left upper chest wall) Heart Exam: Positive: Rate Normal, Normal S1, Normal S2 Abdomen Exam: Positive: Normal bowel sounds, Soft, Negative: Tenderness Extremity Exam: Negative: Edema Psych Exam: Positive: Mood NL, Oriented x 3 Assessment /Plan Problems (1) Tachycardia-bradycardia syndrome Discussed With: Patient Problem Specific Plan: Consult Specialist Problem Text: Her pacer was placed today by Dr. Javier she seems to doing very well. She does not notice much with regards to symptoms. (2) Atrial fibrillation Status: Chronic Response to Treatment: Stable Problem Text: Her anticoagulation will need to be restarted now that she has her pacer. I will leave these changes to Dr. Javier. (3) Dementia Problem Text: She may have early dementia. This concern was raised by her daughter on admission. It will be dealt with in the outpatient setting by her primary care provider. (4) Hypertension Status: Chronic Response to Treatment: Controlled Problem Text: Reasonably controlled. Her atenolol has been restarted. Plan/VTE VTE Prophylaxis Ordered?: Yes (SCDs and TEDS) VTE Exclusion Pharmacological: Other (she is coming off Xarelto for a procedure ) VS, I&O, 24H, Fishbone Vital Signs/I&O Vital Signs Date Time Temp Pulse Resp B/P (MAP) Pulse Ox O2 Delivery O2 Flow Rate FiO2 03/03/17 16:00 97.6 71 18 121/71 (88) 98 Room Air 03/03/17 11:00 2.0 I&O- Last 24 Hours up to 6 AM 03/04/17 05:59 Intake Total 1370 ml Output Total 955 ml Balance 415 ml Laboratory Data 24H LABS Laboratory Tests 2 03/03/17 04:41: Anion Gap 2L, Glomerular Filtration Rate 37.4, Blood Urea Nitrogen 30H, Creatinine 1.43H, Sodium Level 142, Potassium Level 5.1, Chloride Level 107, Carbon Dioxide Level 33H, Calcium Level 8.7L CBC/BMP Laboratory Tests 03/03/17 04:41 Red Blood Count 4.19, Mean Corpuscular Volume 97.6 H, Mean Corpuscular Hemoglobin 31.7, Mean Corpuscular Hemoglobin Concent 32.5, Red Cell Distribution Width 11.6, Calcium Level 8.7 L Microbiology Microbiology 02/27/17 Blood Culture - Preliminary, Resulted No Growth after 72 hours. All specime... 02/27/17 Blood Culture - Preliminary, Resulted No Growth after 72 hours. All specime... 02/27/17 Urine Culture - Final, Complete Osmar Michele MD Mar 03, 2017 17:58
--- NOTE | 2017-03-03 21:02 | ECGEPIP ---
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
[2017-03-03] MEDS: SIMVASTATIN 40 MG TAB PO SCH (21:03)
[2017-03-04] VITALS: BP_SYST 112; BP_SYST 127; BP_SYST 130; BP_DIAS 58; BP_DIAS 62
[2017-03-04 04:00] VITALS: BP 132/65
[2017-03-04 05:22] LABS: MEAN CORPUSCULAR HEMOGLOBIN 31.9 pg (27.0-33.0); MEAN CORPUSCULAR HGB CONC 32.7 g/dl (32.0-36.5); MEAN CORPUSCULAR VOLUME 97.5 fl (80.0-96.0); RED CELL DISTRIBUTION WIDTH 11.7 % (11.5-14.5); WHITE BLOOD COUNT 9.6 10^3/uL (4.0-10.0)
[2017-03-04 05:45] LABS: CREATININE FOR GFR 1.4 MG/DL (0.55-1.02); GLOMERULAR FILTRATION RATE 38.3 (>32); POTASSIUM SERUM 4.7 MEQ/L (3.5-5.1)
[2017-03-04] MEDS: SLF 3 ML SYR IV SCH ×3 (06:00→21:32)
[2017-03-04 08:00] VITALS: BP_SYST 106; BP_SYST 127; BP_SYST 132; BP_SYST 144; BP_DIAS 72; BP_DIAS 73; BP_DIAS 75; BP_DIAS 82
--- NOTE | 2017-03-04 08:49 | REP ---
PA and lateral chest: Comparison is the portable chest of 03/03/2017. There is a single lead pacemaker entering from right with the pacing tip in satisfactory location, right ventricle, unchanged. Surgical clips are adjacent to the pacemaker pack. There is no pneumothorax or pleural fluid collection. Lung mason are clear. Cardiac size normal. Vicki, mediastinum, bony thorax are. Impression: Pacemaker. Otherwise, negative PA lateral chest. Signed by Matthew Burden MD 03/04/2017 08:40 A MTDD
[2017-03-04] MEDS: ATENOLOL 25 MG TAB PO SCH ×2 (09:18→21:31)
[2017-03-04] MEDS: OCUVITE 1 TAB PO SCH (09:19)
[2017-03-04] MEDS: POTASSIUM CITRATE 1080 MG (10MEQ) TAB PO SCH ×3 (09:19→21:26)
[2017-03-04] MEDS: ASCORBIC ACID 250 MG TAB PO SCH ×2 (09:19→21:31)
[2017-03-04] MEDS: TORSEMIDE 5MG TABLET PO SCH (09:20)
[2017-03-04 12:00] VITALS: BP 114/64
--- NOTE | 2017-03-04 12:41 | IPNPDOC ---
Subjective Date Seen The patient was seen on 03/04/17. Subjective Chief Complaint/HPI The patient is a 81-year-old female admitted with a reason for visit of Syncope. Events since last encounter Pacemaker placed 03/03. Patient tolerated well. Per cardiology able to go home when ready. Patient wishes to wait one more day. c/o soreness to left CW at surgical site and mild right scapular pain. Constitutional: Denies: Chills, Fever, Night Sweats ENT: Denies: Head Aches, Ear Pain, Dysphagia Pulmonary: Denies: Dyspnea, Cough Objective Physical Examination General Exam: Positive: Alert, Cooperative, No Acute Distress Eye Exam: Positive: Conjunctiva & lids normal, Negative: Sclera icteric ENT Exam: Positive: Mucous membr. moist/pink Neck Exam: Negative: Lymphadenopathy Chest Exam: Positive: Clear to auscultation, Normal air movement Heart Exam: Positive: Rate Normal, Normal S1, Normal S2 Abdomen Exam: Positive: Normal bowel sounds, Soft, Negative: Tenderness Extremity Exam: Negative: Edema Psych Exam: Positive: Mood NL, Oriented x 3 Assessment /Plan Problems (1) Tachycardia-bradycardia syndrome Discussed With: Patient Problem Specific Plan: Consult Specialist Problem Text: 03/04/17: pacemaker placed. interrogation successful this am. anticipate DC home in am. She'll be having a pacemaker placed with Dr. Javier when she is off Xarelto for 3 days. That is likely to be tomorrow. (2) Atrial fibrillation Status: Chronic Response to Treatment: Stable Problem Text: rate controlled. She honestly sounded like she was in sinus rhythm to me today, however, auscultation is not an appropriate way to assess that. She certainly is at a reasonable rate right now. (3) Dementia Problem Text: She may have early dementia. This concern was raised by her daughter on admission. It will be dealt with in the outpatient setting by her primary care provider. (4) Hypertension Status: Chronic Response to Treatment: Controlled Problem Text: Reasonably controlled. Her atenolol has been restarted. Plan/VTE VTE Prophylaxis Ordered?: Yes (SCDs and TEDS) VTE Exclusion Pharmacological: Other (she is coming off Xarelto for a procedure ) VS, I&O, 24H, Fishbone Vital Signs/I&O Vital Signs Date Time Temp Pulse Resp B/P (MAP) Pulse Ox O2 Delivery O2 Flow Rate FiO2 03/04/17 12:00 96.9 89 18 114/64 (81) 96 Nasal Cannula 2.0 I&O- Last 24 Hours up to 6 AM 03/05/17 06:00 Intake Total 240 ml Balance 240 ml Laboratory Data 24H LABS Laboratory Tests 2 03/04/17 04:54: Anion Gap 4L, Glomerular Filtration Rate 38.3, Blood Urea Nitrogen 28H, Creatinine 1.40H, Sodium Level 141, Potassium Level 4.7, Chloride Level 108H, Carbon Dioxide Level 29, Calcium Level 9.0 CBC/BMP Laboratory Tests 03/04/17 04:54 Red Blood Count 4.39, Mean Corpuscular Volume 97.5 H, Mean Corpuscular Hemoglobin 31.9, Mean Corpuscular Hemoglobin Concent 32.7, Red Cell Distribution Width 11.7, Calcium Level 9.0 Microbiology Microbiology 02/27/17 Blood Culture - Preliminary, Resulted No Growth after 72 hours. All specime... 02/27/17 Blood Culture - Preliminary, Resulted No Growth after 72 hours. All specime... 02/27/17 Urine Culture - Final, Complete uAdrey Bowie FAST FOOD SHIFT SUPERVISOR Mar 04, 2017 12:41
[2017-03-04 16:00] VITALS: BP_SYST 124; BP_SYST 129; BP_DIAS 62; BP_DIAS 64; BP_DIAS 65
[2017-03-04] MEDS ORDERED: RIVAROXABAN 15 MG TAB (XARELTO) PO SCH (18:00)
[2017-03-04 20:00] VITALS: BP 133/79
[2017-03-04] MEDS: SIMVASTATIN 40 MG TAB PO SCH (21:31)
[2017-03-05] VITALS: BP 132/73
[2017-03-05] MEDS: ACETAMINOPHEN TAB 650MG DOSE (2X325MG) PO PRN (01:47)
[2017-03-05 04:51] VITALS: BP_SYST 112; BP_SYST 116; BP_SYST 128; BP_DIAS 68; BP_DIAS 69; BP_DIAS 82
[2017-03-05] MEDS: SLF 3 ML SYR IV SCH (04:59)
[2017-03-05 08:00] VITALS: BP 117/58
[2017-03-05] MEDS: TORSEMIDE 5MG TABLET PO SCH (09:19)
[2017-03-05] MEDS: POTASSIUM CITRATE 1080 MG (10MEQ) TAB PO SCH (09:19)
[2017-03-05] MEDS: OCUVITE 1 TAB PO SCH (09:19)
[2017-03-05 09:20] VITALS: BP 117/58
[2017-03-05] MEDS: ATENOLOL 25 MG TAB PO SCH (09:20)
[2017-03-05] MEDS: ASCORBIC ACID 250 MG TAB PO SCH (09:20)
[2017-03-05 10:00] LABS: MEAN CORPUSCULAR HEMOGLOBIN 32.3 pg (27.0-33.0); MEAN CORPUSCULAR HGB CONC 32.8 g/dl (32.0-36.5); MEAN CORPUSCULAR VOLUME 98.5 fl (80.0-96.0); RED CELL DISTRIBUTION WIDTH 11.8 % (11.5-14.5); WHITE BLOOD COUNT 14.1 10^3/uL (4.0-10.0)
[2017-03-05 10:21] LABS: CALCIUM LEVEL 9.2 MG/DL (8.8-10.2); CREATININE FOR GFR 1.5 MG/DL (0.55-1.02); GLOMERULAR FILTRATION RATE 35.4 (>32); POTASSIUM SERUM 3.9 MEQ/L (3.5-5.1)
[2017-03-05] MEDS ORDERED: ASCO25TA PO (11:27)
[2017-03-05] MEDS ORDERED: ATEN25TA PO (11:27)
[2017-03-05 12:00] VITALS: BP 120/62
[2017-03-19] MEDS ORDERED: OCUVTAB PO (13:23)
[2017-03-19] MEDS ORDERED: VITA500T88 PO (13:23)
[2017-03-19] MEDS ORDERED: POTA10TAB PO (13:23)
[2017-03-19] MEDS ORDERED: CINA30TA PO (13:23)
[2017-03-19] MEDS ORDERED: ATEN25TA PO (13:23)
[2017-03-19] MEDS ORDERED: XARE15TA PO (13:25)
[2017-03-19] MEDS ORDERED: TORS5TAB2 PO (13:25)
[2017-03-19] MEDS ORDERED: SIMV40TA2 PO (13:25)
--- NOTE | 2017-03-27 00:59 | DS.PDOC ---
Discharge Summary General Date of Admission Feb 27, 2017 at 13:21 Date of Discharge March 05, 2017 Primary Care Physician: Jose Guadalupe Little MD Attending Physician: MAGDA HOOPER DO Specialist/Consultants Involve: Chace Javier Discharge Summary PROCEDURES PERFORMED DURING STAY: Placement of single-chamber MRI safe permanent pacemaker ([employer]). ADMITTING DIAGNOSES: 1. unwitnessed syncope 2. memory issues 3. chronic kidney disease 4. atrial fibrillation 5. bladder dysfunction 6. dyslipidemia DISCHARGE DIAGNOSES: 1. unwitnessed syncope 2. tachycardia-bradycardia syndrome 3. chronic kidney disease 4. atrial fibrillation 5. bladder dysfunction 6. dyslipidemia 7. hypertension 8. possible early dementia COMPLICATIONS/CHIEF COMPLAINT: Syncope. HISTORY OF PRESENT ILLNESS: The patient is an 81-year-old female who lives at home alone. She is known to have memory impairment. Her daughter calls her once a day and checks on her quite frequently, setting up her pill bottle. When the last the patient was checked upon, a lot of her medications had not been taken as prescribed, and the patient told her daughter that she had forgotten to take them. She does not have any home health services. At the present time, she lives alone. The patient herself tells me that she wanted to take her dog for a walk at approximately 10:00 a.m. this morning. She remembers getting a little bit woozy and falling down. She denies chest pressure, shortness of breath prior to the episode. She was reportedly found down by a neighbor with the dog running around the front yard. The dog was put in the house and the patient was awake and conscious although down face first. She was helped up by her neighbor and the patient was brought to the emergency room. In the emergency room at this time, the patient is oriented to place. She knows that she is in the emergency room. She knows her name. Her daughter is present at the bedside with her. The patient believes that it is 2013 and that it is January. She is unable to recall the president's name, however, she knows the day of the week and that it is Saturday. At the present time, she has no specific complaints. She does not feel dizzy or lightheadedness, shortness of breath or chest pressure at the time. She reportedly had one episode of emesis in the ambulance en route. However, at the present time, she denies any nausea. She denies feeling sick at all in the last several days with no change in bladder or bowel habits or any sick contacts or cough. HOSPITAL COURSE: Patient was monitored on telemetry and had a 2.6 second pause. Cardiology was consulted, and placed a pacemaker on 03/03/2017. It was interrogated 03/04/2017. She complained of fatigue and soreness that day, and was discharged home 03/05/2017. DISCHARGE MEDICATIONS: Please see below. ALLERGIES: Please see below. PHYSICAL EXAMINATION ON DISCHARGE: VITAL SIGNS: Please see below. GENERAL: elderly female, NAD HEENT: MMM CARDIOVASCULAR EXAMINATION: actually regular rate and rhythm RESPIRATORY EXAMINATION: CTAB ABDOMINAL EXAMINATION: soft, nontender, nondistended EXTREMITIES: no edema PSYCHIATRIC EXAMINATION: appropriate mood and affect LABORATORY DATA: Please see below. IMAGING: Head CT 02/27/2017 showed 1. Small vessel ischemic disease. 2. Minimal volume loss. CXR 02/27/2017 showed Mildly enlarged heart. Old granulomatous calcification on the left. No acute disease. Noncontrast CT spine 02/27/2017 showed 1. There is no acute fracture or subluxation. 2. There is cervical spondylosis at the C2-3 through C7-T1 levels. Normal noncontrast brain MRI 02/27/2017. CXR 03/04/2017 showed appropriate pacemaker placement, otherwise no acute findings. PROGNOSIS: good ACTIVITY: [As tolerated]. DIET: DASH DISCHARGE PLAN: home, with services DISPOSITION: Home Health Service. DISCHARGE INSTRUCTIONS: Take all medications as prescribed. Follow up with Dr. Javier and Dr. Little as scheduled. Contact the office with any problems. ITEMS TO FOLLOWUP ON ON OUTPATIENT: possible early dementia DISCHARGE CONDITION: [Stable]. TIME SPENT ON DISCHARGE: Greater than 15 minutes. Discharge Medications Scheduled Ascorbic Acid (Vitamin C) 500 Mg Tab, 500 MG PO DAILY, (Reported) Atenolol (Atenolol) 25 Mg Tab, 25 MG PO DAILY, (Reported) Cinacalcet Hydrochloride (Sensipar) 30 Mg Tab, 30 MG PO 4XWK, (Reported) MON, TUES, WED, THURS Multivitamins (Ocuvite) 1 Tab Tab, 1 TAB PO DAILY, (Reported) Potassium Citrate (Potassium Citrate 10MEQ (Urocit-K)) 1,080 Mg Tab, 3,240 MG PO DAILY, (Reported) Rivaroxaban (Xarelto) 15 Mg Tab, 15 MG PO DAILY, (Reported) Simvastatin - High Dose (Simvastatin) 40 Mg Tab, 40 MG PO DAILY, (Reported) Torsemide (Torsemide) 5 Mg Tab, 2.5 MG PO DAILY, (Reported) Allergies Coded Allergies: No Known Allergies (Verified , 02/07/07) MAGDA HOOPER DO Mar 27, 2017 00:59
== END 2017-03-05 12:42 | disposition home health service (06) | DRG 244 ==
LOC: EDBD 10:49 → M ED 10:49 → M ED INP 13:21 → M PCU 15:53
PROVIDERS: ADMIT Internal Medicine; ATTEND Family Medicine
PROC: 02HK0JZ Insertion of Pacemaker Lead into Right Ventricle, Open Approach (ICD-10-PCS; 2017-03-03)
PROC: 0JH604Z Insertion of Pacemaker, Single Chamber into Chest Subcutaneous Tissue and Fascia, Open Approach (ICD-10-PCS; principal; 2017-03-03 07:30)
DX: I49.5 Sick sinus syndrome (principal); N18.3 Chronic kidney disease, stage 3 (moderate); I48.2 Chronic atrial fibrillation; F03.90 Unspecified dementia, unspecified severity, without behavioral disturbance, psychotic disturbance, mood disturbance, and anxiety; I34.0 Nonrheumatic mitral (valve) insufficiency; M81.0 Age-related osteoporosis without current pathological fracture; I12.9 Hypertensive chronic kidney disease with stage 1 through stage 4 chronic kidney disease, or unspecified chronic kidney disease; E78.5 Hyperlipidemia, unspecified; Z90.49 Acquired absence of other specified parts of digestive tract; Z88.8 Allergy status to other drugs, medicaments and biological substances; Z85.828 Personal history of other malignant neoplasm of skin; Z79.01 Long term (current) use of anticoagulants; Z79.899 Other long term (current) drug therapy

== ENCOUNTER → 2017-03-15 | Outpatient (REF) | payer MEDICARE ==
[~2017-03-15] MED LIST changes: +ASCO25TA PO; +ATEN25TA PO; +VITA500T88 PO
[2017-03-15 19:32] LABS: MEAN CORPUSCULAR HEMOGLOBIN 31.8 pg (27.0-33.0); MEAN CORPUSCULAR HGB CONC 32.3 g/dl (32.0-36.5); MEAN CORPUSCULAR VOLUME 98.7 fl (80.0-96.0); PLATELET COUNT, AUTOMATED 294 10^3/uL (150-450); RED CELL DISTRIBUTION WIDTH 11.6 % (11.5-14.5); WHITE BLOOD COUNT 10.8 10^3/uL (4.0-10.0)
[2017-03-15 19:44] LABS: CALCIUM LEVEL 8.6 MG/DL (8.8-10.2); CREATININE FOR GFR 1.98 MG/DL (0.55-1.02); FREE T4 1.28 NG/DL (0.76-1.46); GLOMERULAR FILTRATION RATE 25.7 (>32); POTASSIUM SERUM 4.8 MEQ/L (3.5-5.1)
== END ==
LOC: M SFHCADAM 15:03
PROVIDERS: ATTEND Family Medicine
DX: R25.1 Tremor, unspecified (principal); N18.3 Chronic kidney disease, stage 3 (moderate); Z95.0 Presence of cardiac pacemaker
CPT/HCPCS: 80048; 84439; 84443; 85027; G0463

== ENCOUNTER → 2017-05-31 | Outpatient (REF) | payer MEDICARE | LOC: M LAB REF 16:46 | DX: N39.0 Urinary tract infection, site not specified (principal) | CPT/HCPCS: 87086 ==

== ENCOUNTER 2017-06-18 13:30 | Outpatient (CLI) | payer MEDICARE | END 2017-06-21 | LOC: M RAD 06-21 13:30 | DX: N28.89 Other specified disorders of kidney and ureter (principal); N26.1 Atrophy of kidney (terminal); N28.1 Cyst of kidney, acquired | CPT/HCPCS: 76775 ==

== ENCOUNTER → 2017-08-08 | Outpatient (REF) | payer MEDICARE ==
[2017-08-08 20:04] LABS: HEMATOCRIT 46.3 % (36.0-47.0); HEMOGLOBIN 14.8 g/dl (12.0-16.0); MEAN CORPUSCULAR HEMOGLOBIN 31.6 pg (27.0-33.0); MEAN CORPUSCULAR VOLUME 98.9 fl (80.0-96.0); PLATELET COUNT, AUTOMATED 295 10^3/uL (150-450); RED BLOOD COUNT 4.68 10^6/uL (4.00-5.40); RED CELL DISTRIBUTION WIDTH 12.1 % (11.5-14.5); WHITE BLOOD COUNT 8.7 10^3/uL (4.0-10.0)
[2017-08-08 21:11] LABS: ALBUMIN 3.8 GM/DL (3.2-5.2); ALBUMIN/GLOBULIN RATIO 1.03 (1.00-1.93); ALKALINE PHOSPHATASE 116 U/L (45-117); ALT/SGPT 11 U/L (12-78); ANION GAP 10 MEQ/L (8-16); AST/SGOT 20 U/L (7-37); BILIRUBIN,TOTAL 0.4 MG/DL (0.2-1.0); BLOOD UREA NITROGEN 28 MG/DL (7-18); CALCIUM LEVEL 7.5 MG/DL (8.8-10.2); CARBON DIOXIDE LEVEL 32 MEQ/L (21-32); CHLORIDE LEVEL 103 MEQ/L (98-107); CHOLESTEROL LEVEL 186 MG/DL (<200); CREATININE FOR GFR 2.03 MG/DL (0.55-1.30); FREE T4 1.07 NG/DL (0.76-1.46); GLUCOSE, FASTING 97 MG/DL (70-100); HDL CHOLESTEROL 50 MG/DL (>40); LDL CHOLESTEROL 92.4 MG/DL (<100); NON-HDL-C 136 MG/DL; POTASSIUM SERUM 4.4 MEQ/L (3.5-5.1); SODIUM LEVEL 145 MEQ/L (136-145); TOTAL PROTEIN 7.5 GM/DL (6.4-8.2); TRIGLYCERIDES LEVEL 218 MG/DL (<150)
== END ==
LOC: M SFHCADAM 11:28
DX: R41.3 Other amnesia (principal); N18.3 Chronic kidney disease, stage 3 (moderate); E78.5 Hyperlipidemia, unspecified
CPT/HCPCS: 84443

== ENCOUNTER 2017-08-09 11:55 | Inpatient (IN) | payer MEDICARE ==
[2017-08-09 13:02] LABS: BASO # 0.1 10^3/uL (0.0-0.2); BASO % 0.6 % (0.0-1.0); EOS # 0.2 10^3/uL (0.0-0.50); EOS % 1.6 % (0.0-3.0); HEMATOCRIT 39.9 % (36.0-47.0); HEMOGLOBIN 13.2 g/dl (12.0-16.0); IMMATURE GRANULOCYTE % 0.3 % (0-3.0); LYMPH # 1.5 10^3/uL (1.5-4.5); LYMPH % 14.1 % (24.0-44.0); MEAN CORPUSCULAR HEMOGLOBIN 32.1 pg (27.0-33.0); MEAN CORPUSCULAR HGB CONC 33.1 g/dl (32.0-36.5); MEAN CORPUSCULAR VOLUME 97.1 fl (80.0-96.0); MONO % 9.5 % (0.0-5.0); NEUTROPHILS % 73.9 % (36.0-66.0); PLATELET COUNT, AUTOMATED 240 10^3/uL (150-450); RED BLOOD COUNT 4.11 10^6/uL (4.00-5.40); RED CELL DISTRIBUTION WIDTH 11.9 % (11.5-14.5); WHITE BLOOD COUNT 10.8 10^3/uL (4.0-10.0)
[2017-08-09 13:19] LABS: INR 2.18; PROTHROMBIN TIME 25.1 SECONDS (12.4-14.5)
[2017-08-09 13:28] LABS: CPK CREATINE PHOSPHOKINASE 73 U/L (26-192); TROPONIN I < 0.02 NG/ML (< 0.10)
[2017-08-09 13:29] LABS: ANION GAP 5 MEQ/L (8-16); BLOOD UREA NITROGEN 29 MG/DL (7-18); CALCIUM LEVEL 7.3 MG/DL (8.8-10.2); CARBON DIOXIDE LEVEL 33 MEQ/L (21-32); CHLORIDE LEVEL 105 MEQ/L (98-107); CREATININE FOR GFR 2.01 MG/DL (0.55-1.30); FREE T4 1.06 NG/DL (0.76-1.46); GLOMERULAR FILTRATION RATE 25.2 (>32); GLUCOSE, FASTING 94 MG/DL (70-100); MAGNESIUM LEVEL 2.3 MG/DL (1.8-2.4); POTASSIUM SERUM 4.9 MEQ/L (3.5-5.1); SODIUM LEVEL 143 MEQ/L (136-145)
[2017-08-09 13:34] LABS: MB/CK RELATIVE INDEX 1.36 (< OR =4)
[2017-08-09 13:36] LABS: KETONE, URINE AUTO RFX NEGATIVE (NEGATIVE); MUCUS, URINE RFX SMALL (NEGATIVE); NITRITE, URINE AUTO RFX NEGATIVE (NEGATIVE); RBC, URINE AUTO RFX 90 /HPF (0-3); SPECIFIC GRAVITY UR AUTO RFX 1.012 (1.002-1.035); SQUAM EPITHELIAL CELL UR AURFX 0 /HPF (0-6)
[2017-08-09 13:41] LABS: LEUKOCYTE ESTERASE UR AUTO RFX 3+ (NEGATIVE); WBC, URINE AUTO RFX 13 /HPF (0-3)
[2017-08-09] MEDS ORDERED: ONDANSETRON 4 MG TAB (S0181) PO (15:30)
[2017-08-09 16:26] LABS: C REACTIVE PROTEIN QUANTITATIV < 0.30 MG/DL (0.00-0.30)
[2017-08-09 16:47] LABS: ERYTHROCYTE SEDIMENTATION RATE 21 mm/hr (0-30)
[2017-08-09] MEDS: NS 1,000 ML IV (18:55)
[2017-08-09 20:51] LABS: CPK CREATINE PHOSPHOKINASE 77 U/L (26-192); TROPONIN I 0.05 NG/ML (< 0.10)
[2017-08-09 20:52] LABS: MB/CK RELATIVE INDEX 1.29 (< OR =4)
[2017-08-10 01:29] LABS: CPK CREATINE PHOSPHOKINASE 70 U/L (26-192); TROPONIN I 0.04 NG/ML (< 0.10)
[2017-08-10 01:30] LABS: MB/CK RELATIVE INDEX 1.42 (< OR =4)
[2017-08-10 03:54] LABS: BASO # 0.1 10^3/uL (0.0-0.2); BASO % 0.6 % (0.0-1.0); EOS # 0.2 10^3/uL (0.0-0.50); HEMATOCRIT 36.5 % (36.0-47.0); HEMOGLOBIN 11.9 g/dl (12.0-16.0); IMMATURE GRANULOCYTE % 0.5 % (0-3.0); LYMPH # 2.8 10^3/uL (1.5-4.5); LYMPH % 29.2 % (24.0-44.0); MEAN CORPUSCULAR HEMOGLOBIN 31.7 pg (27.0-33.0); MEAN CORPUSCULAR HGB CONC 32.6 g/dl (32.0-36.5); MEAN CORPUSCULAR VOLUME 97.3 fl (80.0-96.0); MONO # 1.3 10^3/uL (0.0-0.8); MONO % 13.4 % (0.0-5.0); NEUTROPHILS # 5.2 10^3/uL (1.8-7.7); NEUTROPHILS % 54.3 % (36.0-66.0); PLATELET COUNT, AUTOMATED 221 10^3/uL (150-450); RED BLOOD COUNT 3.75 10^6/uL (4.00-5.40); RED CELL DISTRIBUTION WIDTH 11.9 % (11.5-14.5); WHITE BLOOD COUNT 9.6 10^3/uL (4.0-10.0)
[2017-08-10 04:18] LABS: ANION GAP 6 MEQ/L (8-16); BLOOD UREA NITROGEN 32 MG/DL (7-18); CALCIUM LEVEL 7.3 MG/DL (8.8-10.2); CARBON DIOXIDE LEVEL 32 MEQ/L (21-32); CHLORIDE LEVEL 108 MEQ/L (98-107); CREATININE FOR GFR 1.91 MG/DL (0.55-1.30); GLOMERULAR FILTRATION RATE 26.8 (>32); GLUCOSE, FASTING 85 MG/DL (70-100); POTASSIUM SERUM 4.5 MEQ/L (3.5-5.1); SODIUM LEVEL 146 MEQ/L (136-145)
[2017-08-10] MEDS: NS 1,000 ML IV (05:41)
[2017-08-10] MEDS: POTASSIUM CITRATE 1080 MG (10MEQ) TAB PO (07:35)
[2017-08-10] MEDS: OCUVITE 1 TAB PO (07:35)
[2017-08-10] MEDS: SIMVASTATIN 40 MG TAB PO (07:35)
[2017-08-10] MEDS: RIVAROXABAN 15 MG TAB (XARELTO) PO (07:35)
[2017-08-10] MEDS: CALCITRIOL 0.25 MCG CAP (S0169) PO (07:35)
[2017-08-10] MEDS: ASCORBIC ACID 500 MG TAB PO (07:35)
[2017-08-10] MEDS: ATENOLOL 25 MG TAB PO (14:28)
[2017-08-11 04:09] LABS: BASO # 0.1 10^3/uL (0.0-0.2); BASO % 0.9 % (0.0-1.0); EOS # 0.3 10^3/uL (0.0-0.50); EOS % 3.1 % (0.0-3.0); HEMATOCRIT 35.9 % (36.0-47.0); HEMOGLOBIN 11.5 g/dl (12.0-16.0); IMMATURE GRANULOCYTE % 0.1 % (0-3.0); LYMPH # 2.3 10^3/uL (1.5-4.5); LYMPH % 28.4 % (24.0-44.0); MEAN CORPUSCULAR HEMOGLOBIN 31.1 pg (27.0-33.0); MONO % 12.9 % (0.0-5.0); NEUTROPHILS # 4.4 10^3/uL (1.8-7.7); NEUTROPHILS % 54.6 % (36.0-66.0); PLATELET COUNT, AUTOMATED 215 10^3/uL (150-450); RED CELL DISTRIBUTION WIDTH 11.8 % (11.5-14.5); WHITE BLOOD COUNT 8.1 10^3/uL (4.0-10.0)
[2017-08-11 04:28] LABS: ANION GAP 5 MEQ/L (8-16); BLOOD UREA NITROGEN 31 MG/DL (7-18); CALCIUM LEVEL 8.1 MG/DL (8.8-10.2); CARBON DIOXIDE LEVEL 29 MEQ/L (21-32); CHLORIDE LEVEL 112 MEQ/L (98-107); CREATININE FOR GFR 1.78 MG/DL (0.55-1.30); GLUCOSE, FASTING 88 MG/DL (70-100); MAGNESIUM LEVEL 2.1 MG/DL (1.8-2.4); POTASSIUM SERUM 5.1 MEQ/L (3.5-5.1); SODIUM LEVEL 146 MEQ/L (136-145)
[2017-08-11] MEDS: RIVAROXABAN 15 MG TAB (XARELTO) PO (08:00)
[2017-08-11] MEDS: CALCITRIOL 0.25 MCG CAP (S0169) PO (08:00)
[2017-08-11] MEDS: SIMVASTATIN 40 MG TAB PO (08:00)
[2017-08-11] MEDS: POTASSIUM CITRATE 1080 MG (10MEQ) TAB PO (08:00)
[2017-08-11] MEDS: ATENOLOL 25 MG TAB PO (08:00)
[2017-08-11] MEDS: ASCORBIC ACID 500 MG TAB PO (08:01)
[2017-08-11] MEDS: OCUVITE 1 TAB PO (08:01)
[2017-08-11] MEDS: AMIODARONE 200 MG TAB (PACERONE) PO ×3 (11:17→21:00)
[2017-08-11 12:25] LABS: TROPONIN I < 0.02 NG/ML (< 0.10)
[2017-08-11] MEDS: ACETAMINOPHEN TAB 650MG DOSE (2X325MG) PO (16:04)
[2017-08-12 04:15] LABS: BASO # 0.1 10^3/uL (0.0-0.2); EOS # 0.3 10^3/uL (0.0-0.50); EOS % 3.7 % (0.0-3.0); HEMATOCRIT 36.9 % (36.0-47.0); HEMOGLOBIN 11.9 g/dl (12.0-16.0); IMMATURE GRANULOCYTE % 0.3 % (0-3.0); LYMPH % 28.1 % (24.0-44.0); MEAN CORPUSCULAR HEMOGLOBIN 31.6 pg (27.0-33.0); MEAN CORPUSCULAR HGB CONC 32.2 g/dl (32.0-36.5); MEAN CORPUSCULAR VOLUME 97.9 fl (80.0-96.0); MONO % 13.7 % (0.0-5.0); NEUTROPHILS # 3.7 10^3/uL (1.8-7.7); NEUTROPHILS % 53.2 % (36.0-66.0); PLATELET COUNT, AUTOMATED 221 10^3/uL (150-450); RED BLOOD COUNT 3.77 10^6/uL (4.00-5.40); RED CELL DISTRIBUTION WIDTH 11.9 % (11.5-14.5)
[2017-08-12 04:36] LABS: ANION GAP 6 MEQ/L (8-16); BLOOD UREA NITROGEN 29 MG/DL (7-18); CARBON DIOXIDE LEVEL 29 MEQ/L (21-32); CHLORIDE LEVEL 112 MEQ/L (98-107); CREATININE FOR GFR 1.68 MG/DL (0.55-1.30); GLOMERULAR FILTRATION RATE 31.1 (>32); GLUCOSE, FASTING 89 MG/DL (70-100); MAGNESIUM LEVEL 1.9 MG/DL (1.8-2.4); POTASSIUM SERUM 4.5 MEQ/L (3.5-5.1); SODIUM LEVEL 147 MEQ/L (136-145)
[2017-08-12] MEDS: SIMVASTATIN 40 MG TAB PO (09:21)
[2017-08-12] MEDS: RIVAROXABAN 15 MG TAB (XARELTO) PO (09:21)
[2017-08-12] MEDS: CALCITRIOL 0.25 MCG CAP (S0169) PO (09:21)
[2017-08-12] MEDS: CINACALCET 30 MG TAB (SENSIPAR) PO (09:21)
[2017-08-12] MEDS: AMIODARONE 200 MG TAB (PACERONE) PO ×4 (09:22→21:07)
[2017-08-12] MEDS: POTASSIUM CITRATE 1080 MG (10MEQ) TAB PO (09:22)
[2017-08-12] MEDS: ATENOLOL 12.5MG PER 1/2 TABLET PO (09:22)
[2017-08-12] MEDS: OCUVITE 1 TAB PO (09:22)
[2017-08-13] MEDS: BISACODYL 5 MG TAB PO (05:02)
[2017-08-13 05:21] LABS: BASO # 0.1 10^3/uL (0.0-0.2); BASO % 0.9 % (0.0-1.0); EOS # 0.3 10^3/uL (0.0-0.50); EOS % 3.5 % (0.0-3.0); HEMATOCRIT 37.1 % (36.0-47.0); IMMATURE GRANULOCYTE % 0.4 % (0-3.0); LYMPH # 2.2 10^3/uL (1.5-4.5); MEAN CORPUSCULAR HEMOGLOBIN 31.6 pg (27.0-33.0); MEAN CORPUSCULAR HGB CONC 32.3 g/dl (32.0-36.5); MEAN CORPUSCULAR VOLUME 97.6 fl (80.0-96.0); MONO # 1.1 10^3/uL (0.0-0.8); NEUTROPHILS # 4.5 10^3/uL (1.8-7.7); NEUTROPHILS % 55.2 % (36.0-66.0); PLATELET COUNT, AUTOMATED 227 10^3/uL (150-450); RED CELL DISTRIBUTION WIDTH 11.9 % (11.5-14.5); WHITE BLOOD COUNT 8.2 10^3/uL (4.0-10.0)
[2017-08-13 05:39] LABS: ANION GAP 7 MEQ/L (8-16); BLOOD UREA NITROGEN 28 MG/DL (7-18); CALCIUM LEVEL 7.6 MG/DL (8.8-10.2); CARBON DIOXIDE LEVEL 28 MEQ/L (21-32); CHLORIDE LEVEL 112 MEQ/L (98-107); CREATININE FOR GFR 1.68 MG/DL (0.55-1.30); GLOMERULAR FILTRATION RATE 31.1 (>32); GLUCOSE, FASTING 87 MG/DL (70-100); MAGNESIUM LEVEL 1.8 MG/DL (1.8-2.4); POTASSIUM SERUM 4.5 MEQ/L (3.5-5.1); SODIUM LEVEL 147 MEQ/L (136-145)
[2017-08-13] MEDS: CINACALCET 30 MG TAB (SENSIPAR) PO (08:49)
[2017-08-13] MEDS: OCUVITE 1 TAB PO (08:49)
[2017-08-13] MEDS: CALCITRIOL 0.25 MCG CAP (S0169) PO (08:49)
[2017-08-13] MEDS: AMIODARONE 200 MG TAB (PACERONE) PO ×4 (08:49→20:31)
[2017-08-13] MEDS: RIVAROXABAN 15 MG TAB (XARELTO) PO (08:50)
[2017-08-13] MEDS: POTASSIUM CITRATE 1080 MG (10MEQ) TAB PO (08:54)
[2017-08-13] MEDS: ATENOLOL 12.5MG PER 1/2 TABLET PO (08:54)
[2017-08-13] MEDS ORDERED: SIMVASTATIN 10 MG TAB PO (09:04)
[2017-08-13] MEDS: SIMVASTATIN 10 MG TAB PO (09:46)
[2017-08-13] MEDS: DOCUSATE SODIUM 100 MG CAP PO ×2 (10:53→20:31)
[2017-08-13] MEDS: MOM 30ML SUSPENSION UDC PO (10:53)
[2017-08-14 05:47] LABS: BASO # 0.1 10^3/uL (0.0-0.2); BASO % 0.4 % (0.0-1.0); EOS # 0.1 10^3/uL (0.0-0.50); EOS % 0.6 % (0.0-3.0); HEMATOCRIT 35.1 % (36.0-47.0); HEMOGLOBIN 11.6 g/dl (12.0-16.0); IMMATURE GRANULOCYTE % 0.5 % (0-3.0); LYMPH # 2.2 10^3/uL (1.5-4.5); LYMPH % 16.8 % (24.0-44.0); MEAN CORPUSCULAR HEMOGLOBIN 31.3 pg (27.0-33.0); MEAN CORPUSCULAR VOLUME 94.6 fl (80.0-96.0); MONO # 1.6 10^3/uL (0.0-0.8); MONO % 12.3 % (0.0-5.0); NEUTROPHILS # 9.2 10^3/uL (1.8-7.7); NEUTROPHILS % 69.4 % (36.0-66.0); PLATELET COUNT, AUTOMATED 223 10^3/uL (150-450); RED BLOOD COUNT 3.71 10^6/uL (4.00-5.40); RED CELL DISTRIBUTION WIDTH 11.9 % (11.5-14.5); WHITE BLOOD COUNT 13.3 10^3/uL (4.0-10.0)
[2017-08-14 06:03] LABS: ANION GAP 6 MEQ/L (8-16); BLOOD UREA NITROGEN 25 MG/DL (7-18); CALCIUM LEVEL 7.5 MG/DL (8.8-10.2); CARBON DIOXIDE LEVEL 29 MEQ/L (21-32); CHLORIDE LEVEL 108 MEQ/L (98-107); CREATININE FOR GFR 1.71 MG/DL (0.55-1.30); GLOMERULAR FILTRATION RATE 30.4 (>32); GLUCOSE, FASTING 94 MG/DL (70-100); POTASSIUM SERUM 4.2 MEQ/L (3.5-5.1); SODIUM LEVEL 143 MEQ/L (136-145)
[2017-08-14] MEDS: MOM 30ML SUSPENSION UDC PO (08:23)
[2017-08-14] MEDS: POTASSIUM CITRATE 1080 MG (10MEQ) TAB PO (08:23)
[2017-08-14] MEDS: RIVAROXABAN 15 MG TAB (XARELTO) PO (08:24)
[2017-08-14] MEDS: SIMVASTATIN 10 MG TAB PO (08:24)
[2017-08-14] MEDS: OCUVITE 1 TAB PO (08:24)
[2017-08-14] MEDS: CINACALCET 30 MG TAB (SENSIPAR) PO (08:24)
[2017-08-14] MEDS: DOCUSATE SODIUM 100 MG CAP PO (08:24)
[2017-08-14] MEDS: BISACODYL 5 MG TAB PO (08:24)
[2017-08-14] MEDS: CALCITRIOL 0.25 MCG CAP (S0169) PO (08:24)
[2017-08-14] MEDS: AMIODARONE 200 MG TAB (PACERONE) PO ×2 (08:24→12:54)
[2017-08-14] MEDS: ATENOLOL 12.5MG PER 1/2 TABLET PO (08:24)
[2017-08-14] MEDS ORDERED: SIMVASTATIN 10 MG TAB PO (09:00)
[2017-08-14] MEDS ORDERED: SLF 3 ML SYR IV ×2 (15:45→22:00)
== END 2017-08-14 14:37 | disposition home health service (06) | DRG 309 ==
LOC: M ED 11:55 → M ED INP 14:30 → M PCU 20:05
DX: I45.81 Long QT syndrome (principal); N25.81 Secondary hyperparathyroidism of renal origin; N17.9 Acute kidney failure, unspecified; I50.32 Chronic diastolic (congestive) heart failure; I13.0 Hypertensive heart and chronic kidney disease with heart failure and stage 1 through stage 4 chronic kidney disease, or unspecified chronic kidney disease; I48.2 Chronic atrial fibrillation; N18.3 Chronic kidney disease, stage 3 (moderate); I95.9 Hypotension, unspecified; K59.00 Constipation, unspecified; F03.90 Unspecified dementia, unspecified severity, without behavioral disturbance, psychotic disturbance, mood disturbance, and anxiety; K64.8 Other hemorrhoids; E78.5 Hyperlipidemia, unspecified; M81.0 Age-related osteoporosis without current pathological fracture; M50.20 Other cervical disc displacement, unspecified cervical region; Z79.01 Long term (current) use of anticoagulants; Z85.828 Personal history of other malignant neoplasm of skin; Z90.49 Acquired absence of other specified parts of digestive tract; Z95.0 Presence of cardiac pacemaker; Z79.899 Other long term (current) drug therapy

== ENCOUNTER → 2017-08-22 | Outpatient (REF) | payer MEDICARE ==
[2017-08-22 20:20] LABS: HEMATOCRIT 40.4 % (36.0-47.0); HEMOGLOBIN 12.8 g/dl (12.0-15.5); MEAN CORPUSCULAR HGB CONC 31.7 g/dl (32.0-36.5); PLATELET COUNT, AUTOMATED 294 10^3/uL (150-450); RED CELL DISTRIBUTION WIDTH 12.6 % (11.5-14.5); WHITE BLOOD COUNT 10.8 10^3/uL (4.0-10.0)
[2017-08-22 20:58] LABS: ANION GAP 6 MEQ/L (8-16); BLOOD UREA NITROGEN 25 MG/DL (7-18); CALCIUM LEVEL 8.3 MG/DL (8.8-10.2); CARBON DIOXIDE LEVEL 31 MEQ/L (21-32); CHLORIDE LEVEL 110 MEQ/L (98-107); CREATININE FOR GFR 2.06 MG/DL (0.55-1.30); GLOMERULAR FILTRATION RATE 24.5 (>32); GLUCOSE, FASTING 110 MG/DL (70-100); POTASSIUM SERUM 4.6 MEQ/L (3.5-5.1); SODIUM LEVEL 147 MEQ/L (136-145)
== END ==
LOC: M SFHCADAM 14:09
DX: N18.3 Chronic kidney disease, stage 3 (moderate) (principal); I47.2 Ventricular tachycardia
CPT/HCPCS: 83735

== ENCOUNTER → 2017-09-11 | Outpatient (CLI) | payer MEDICARE | LOC: M RAD 11:06 | DX: N18.3 Chronic kidney disease, stage 3 (moderate) (principal) | CPT/HCPCS: 76775 ==

== ENCOUNTER → 2017-10-07 | Outpatient (CLI) | payer MEDICARE ==
[2017-10-07 12:16] LABS: BASO # 0.1 10^3/uL (0.0-0.2); BASO % 1.1 % (0.0-1.0); EOS # 0.2 10^3/uL (0.0-0.50); EOS % 2.6 % (0.0-3.0); HEMATOCRIT 39.2 % (36.0-47.0); HEMOGLOBIN 12.6 g/dl (12.0-15.5); IMMATURE GRANULOCYTE % 0.4 % (0-3.0); LYMPH % 23.6 % (24.0-44.0); MEAN CORPUSCULAR HEMOGLOBIN 31.6 pg (27.0-33.0); MEAN CORPUSCULAR HGB CONC 32.1 g/dl (32.0-36.5); MEAN CORPUSCULAR VOLUME 98.2 fl (80.0-96.0); MONO # 1.1 10^3/uL (0.0-0.8); MONO % 12.7 % (0.0-5.0); NEUTROPHILS # 5.1 10^3/uL (1.8-7.7); NEUTROPHILS % 59.6 % (36.0-66.0); PLATELET COUNT, AUTOMATED 260 10^3/uL (150-450); RED BLOOD COUNT 3.99 10^6/uL (4.00-5.40); RED CELL DISTRIBUTION WIDTH 12.9 % (11.5-14.5); WHITE BLOOD COUNT 8.6 10^3/uL (4.0-10.0)
[2017-10-07 12:58] LABS: ANION GAP 7 MEQ/L (8-16); BLOOD UREA NITROGEN 32 MG/DL (7-18); CARBON DIOXIDE LEVEL 28 MEQ/L (21-32); CHLORIDE LEVEL 110 MEQ/L (98-107); CREATININE FOR GFR 2.17 MG/DL (0.55-1.30); GLOMERULAR FILTRATION RATE 23.1 (>32); GLUCOSE, FASTING 95 MG/DL (70-100); SODIUM LEVEL 145 MEQ/L (136-145)
[2017-10-07 12:59] LABS: POTASSIUM SERUM 5.3 MEQ/L (3.5-5.1)
== END ==
LOC: M WUC 10:54
DX: I48.91 Unspecified atrial fibrillation (principal)
CPT/HCPCS: 80048

== ENCOUNTER → 2017-10-14 | Outpatient (CLI) | payer MEDICARE ==
[2017-10-14 10:48] LABS: CREATININE FOR GFR 2.38 MG/DL (0.55-1.30); GLOMERULAR FILTRATION RATE 20.8 (>32)
== END ==
LOC: M WUC 08:18
DX: R79.89 Other specified abnormal findings of blood chemistry (principal)
CPT/HCPCS: 82565

== ENCOUNTER → 2017-11-19 | Outpatient (REF) | payer MEDICARE ==
[2017-11-19 20:02] LABS: HEMATOCRIT 38.2 % (36.0-47.0); HEMOGLOBIN 12.3 g/dl (12.0-15.5); MEAN CORPUSCULAR HEMOGLOBIN 32.3 pg (27.0-33.0); MEAN CORPUSCULAR HGB CONC 32.2 g/dl (32.0-36.5); MEAN CORPUSCULAR VOLUME 100.3 fl (80.0-96.0); PLATELET COUNT, AUTOMATED 249 10^3/uL (150-450); RED BLOOD COUNT 3.81 10^6/uL (4.00-5.40); RED CELL DISTRIBUTION WIDTH 13.1 % (11.5-14.5); WHITE BLOOD COUNT 8.9 10^3/uL (4.0-10.0)
[2017-11-19 20:41] LABS: ALBUMIN 3.7 GM/DL (3.2-5.2); ALKALINE PHOSPHATASE 89 U/L (45-117); ALT/SGPT 16 U/L (12-78); ANION GAP 10 MEQ/L (8-16); AST/SGOT 19 U/L (7-37); BILIRUBIN,TOTAL 0.4 MG/DL (0.2-1.0); BLOOD UREA NITROGEN 43 MG/DL (7-18); CALCIUM LEVEL 8.5 MG/DL (8.8-10.2); CARBON DIOXIDE LEVEL 30 MEQ/L (21-32); CHLORIDE LEVEL 106 MEQ/L (98-107); CREATININE FOR GFR 2.51 MG/DL (0.55-1.30); GLOMERULAR FILTRATION RATE 19.5 (>32); GLUCOSE, FASTING 71 MG/DL (70-100); POTASSIUM SERUM 4.8 MEQ/L (3.5-5.1); SODIUM LEVEL 146 MEQ/L (136-145); TOTAL PROTEIN 7.4 GM/DL (6.4-8.2)
== END ==
LOC: M SFHCADAM 12:30
DX: R17 Unspecified jaundice (principal)
CPT/HCPCS: 80053

== ENCOUNTER 2018-11-17 20:43 | Inpatient (IN) | payer MEDICARE ==
[~2018-11-17] VITALS: Ht 157.5 cm; Wt 65.4 kg
[~2018-11-17 20:43] MED LIST changes: +AMIO200T PO; +ANUS2.5C2 PR; -ASCO25TA PO; +CALC1CAP31 PO; -CINA30TA PO; +CINA30TA4 PO; +FLOM0.4C39 PO; -FLOM5CAP PO; +HYDR-3715 PO; -NORCOTAB PO; +POTA10808 PO; -POTA10TAB PO; +SIMV10TA2 PO; +VITA1TAB23 PO
[2018-11-17 21:18] LABS: BASO # 0.1 10^3/uL (0.0-0.2); BASO % 0.7 % (0.0-1.0); EOS # 0.2 10^3/uL (0.0-0.50); EOS % 1.5 % (0.0-3.0); HEMATOCRIT 40.4 % (36.0-47.0); HEMOGLOBIN 13.2 g/dl (12.0-15.5); LYMPH # 2.1 10^3/uL (1.5-4.5); LYMPH % 21.3 % (24.0-44.0); MEAN CORPUSCULAR HGB CONC 32.7 g/dl (32.0-36.5); MONO # 1.3 10^3/uL (0.0-0.8); MONO % 13.4 % (0.0-5.0); NEUTROPHILS # 6.3 10^3/uL (1.8-7.7); NEUTROPHILS % 62.7 % (36.0-66.0); PLATELET COUNT, AUTOMATED 265 10^3/uL (150-450)
[2018-11-17 21:28] LABS: INR 1.14; PROTHROMBIN TIME 14.3 SECONDS (11.8-14.0)
[2018-11-17 21:52] LABS: BLOOD UREA NITROGEN 38 MG/DL (7-18); CALCIUM LEVEL 8.8 MG/DL (8.8-10.2); CARBON DIOXIDE LEVEL 28 MEQ/L (21-32); CHLORIDE LEVEL 111 MEQ/L (98-107); CK-MB VALUE MASS < 1.0 NG/ML (<3.6); CPK CREATINE PHOSPHOKINASE 92 U/L (26-192); CREATININE FOR GFR 2.08 MG/DL (0.55-1.30); GLOMERULAR FILTRATION RATE 24.2 (>32); GLUCOSE, FASTING 98 MG/DL (70-100); MB/CK RELATIVE INDEX 1.09 (< OR =4); SODIUM LEVEL 145 MEQ/L (136-145); TROPONIN I < 0.02 NG/ML (< 0.10)
--- NOTE | 2018-11-17 22:35 | REPVR ---
EXAM: CT Head Without Contrast EXAM DATE/TIME: 11/17/2018 9:49 PM CLINICAL HISTORY: 82 years old, female; Syncope and collapse TECHNIQUE: Imaging protocol: Axial computed tomography images of the head without contrast. Radiation optimization: All CT scans at this facility use at least one of these dose optimization techniques: automated exposure control; mA and/or kV adjustment per patient size (includes targeted exams where dose is matched to clinical indication); or iterative reconstruction. COMPARISON: CT Head without contrast 08/09/2017 12:27 PM FINDINGS: Brain: There is moderate age-related parenchymal volume loss. White matter changes are demonstrated in the subcortical, centrum semiovale and periventricular white matter consistent with small vessel white matter angiopathic gliosis. Mild cerebellar atrophy. Stable 6 mm left anterior parietal dural based calcification consistent with a small calcified meningioma demonstrated. Ventricles: The degree of ventricular dilatation is normal for age. No pathologic enlargement demonstrated. Bones/joints: There is hyperostosis frontalis interna. Sinuses: Visualized sinuses are unremarkable. No fluid levels. Mastoid air cells: Visualized mastoid air cells are well aerated. No mastoid effusion. Soft tissues: Unremarkable. IMPRESSION: There is moderate age-related parenchymal volume loss. White matter changes are demonstrated in the subcortical, centrum semiovale and periventricular white matter consistent with small vessel white matter angiopathic gliosis. Electronically signed by: Bradley Montesinos On 11/17/2018 22:35:20 PM
[2018-11-17] MEDS ORDERED: PRAV40TA2 PO (23:25)
[2018-11-17] MEDS ORDERED: CLOP75TA2 PO (23:25)
[2018-11-17] MEDS ORDERED: AMIO200T PO (23:25)
[2018-11-17] MEDS ORDERED: ATEN25TA PO (23:25)
[2018-11-17] MEDS ORDERED: TORS5TAB2 PO (23:25)
[2018-11-17] MEDS ORDERED: HYDR25TA PO (23:25)
[2018-11-17] MEDS ORDERED: ELIQ2.5T PO (23:25)
[2018-11-18] MEDS ORDERED: MAALOX 30 ML SUSP *UDC PO PRN (00:15)
[2018-11-18] MEDS ORDERED: MOM 30ML SUSPENSION UDC PO PRN (00:15)
[2018-11-18] MEDS: APIXABAN 5 MG TAB (ELIQUIS) PO SCH ×2 (00:30→09:26)
[2018-11-18] MEDS ORDERED: PILL CUTTER 1 EACH XX PRN (00:30)
--- NOTE | 2018-11-18 00:58 | HPEPDOC ---
General Date of Admission 11/18/18 Date of Service: Nov 18, 2018 Chief Complaint The patient is a 82-year-old female admitted with a reason for visit of Extremity Pain. Source: Patient, RN/MD, RN notes reviewed, Old records Exam Limitations: Dementia Severity: Moderate Associated Symptoms: Syncope, Mechanical fall History of Present Illness 82 year old female with PMH of Dementia, afib , torsades with syncope, CKD stage 4, hypertension, hyperlipidemia, secondary hyperparathyroidism presented to the ED with Syncope and collapse x 2 in her home. Patient tells me that she was going from her kitchen to living room when she tripped and fell after that she called her daughter and she brought her to the hospital. She says she fell on her left side and hurt her shoulder. She says she remembers beginning to fall then cannot remember anything and found herself down on the floor. When i mentioned that her daughter said that she fell twice she said it may have been a little one before. She is a poor historian due to dementia and for most questions she says " I dont know". She knows she is in the hospital in [place] but does not know the name. She could not tell me her home address, Says she drives and yesterday she drove to the grocery store. She is very concerned about her dog. She complains of shoulder pain on the left, dull aching in character about 5/10 in intensity without any radiation. Says any movement of the arm is causing pain in the shoulder. There is a bruise on that shoulder. Home Medications Scheduled Amiodarone HCl (Amiodarone HCl) 200 Mg Tablet, 200 MG PO DAILY, (Reported) Apixaban (Eliquis) 2.5 Mg Tablet, 5 MG PO DAILY, (Reported) Ascorbic Acid (Vitamin C) 500 Mg Tab, 500 MG PO DAILY, (Reported) Atenolol (Atenolol) 25 Mg Tablet, 12.5 MG PO DAILY, (Reported) Calcitriol (Calcitriol) 0.25 Mcg Cap, 0.25 MCG PO DAILY, (Reported) Cinacalcet (Sensipar) 30 Mg Tab, 30 MG PO 2XW, (Reported) SATURDAY AND SATURDAY Clopidogrel Bisulfate (Clopidogrel) 75 Mg Tablet, 75 MG PO DAILY, (Reported) Hydralazine HCl (Hydralazine HCl) 25 Mg Tablet, 50 MG PO DAILY, (Reported) Potassium Citrate (Potassium Citrate 10MEQ (Urocit-K)) 1,080 Mg Tab, 3,240 MG PO DAILY, (Reported) Pravastatin Sodium (Pravastatin Sodium) 40 Mg Tablet, 40 MG PO DAILY, (Reported) Torsemide (Torsemide) 5 Mg Tablet, 2.5 MG PO DAILY, (Reported) Vits A,C,E/Lutein/Minerals (Ocuvite with Lutein Tablet) 1 Tab Tab, 1 TAB PO DAILY, (Reported) Allergies Coded Allergies: No Known Allergies (Verified , 11/17/18) Past Medical History Medical History ATRIAL FIBRILLATION KIDNEY STONES HYPERLIPIDEMIA OSTEOPOROSIS HYPERTENSION COLLAPSED LUNG 1979, APPROX. BASAL CELL CARCINOMA, LEFT CALF. NST 01/03--NL PERFUSION, FALSE + EKG PORTION, EF 63% CKD 4 (NL PFTS 02/05, FEV1 2.2, DLCO NL) ECHO 04/12 EF 60%, LAE 44 MM; ECHO 08/11: EF 60%, SEVERE MR; INC RT SIDED PRESSURES SECONDARY HYPERPARATHYROIDISM DEMENTIA DDD/DJD CERVICAL SPINE 12/10 TORSADES/SYNCOPE ADMITTED 08/11 CAD, S/P PCI 10/11 2 STENTS Surgical History STEPHEN & BSO APPENDECTOMY BREAST LUMP REMOVED BASAL CELL SKIN CANCER RENAL STONE SX 11/25 RT HEMICOLECTYOMY (VILLOUS ADENOMA WITH HIGH GRADE DYSPLASIA, NO MALIGNANCY) 01/31 CYSTOSCOPY 04/2012 LEFT ESWL 01/28/2013 CATARACT REMOVAL RIGHT EYE PACEMAKER 03/12 Family History FATHER: , LUNG CANCER MOTHER: , DM, HTN SIBLINGS: , DM, HTN; BROTHER HAD LUNG CA SON(S): , MOTOR VEHICLE ACCIDENT 1 SON(S) , 2 DAUGHTER(S) . NO FAMILY HX OF BLADDER OR KIDNEY CANCER. Social History * Smoker: Denies Alcohol: Denies Drugs: denies A-FIB/CHADSVASC A-FIB History Current/History of A-Fib/PAF?: Yes Current PO Anticoag Therapy: Yes Review of Systems Constitutional: Denies: Chills, Fever, Night Sweats Eyes: Denies: Pain, Vision change ENT: Denies: Head Aches, Ear Pain, Dysphagia Skin: Denies: Rash, Lesions, Breakdown Pulmonary: Denies: Dyspnea, Cough Cardiovascular: Denies: Chest Pain, Palpitations, Orthopnea, Paroxysmal Noc. Dyspnea, Lt Headedness Gastrointestinal: Denies: Nausea, Vomiting, Abdominal Pain, Diarrhea Genitourinary: Denies: Dysuria, Frequency, Incontinence, Retention Hematologic: Reports: Bruising Musculoskeletal: Reports: Shoulder Pain, Arm Pain; Denies: Neck Pain, Back Pain, Joint Pain, Muscle Pain, Spasms Psych: Reports: Memory Issues Physical Examination General Exam: Positive: Alert, Cooperative, No Acute Distress Eye Exam: Positive: PERRLA, Conjunctiva & lids normal, EOMI; Negative: Sclera icteric ENT Exam: Positive: Atraumatic, Mucous membr. moist/pink, Pharynx Normal Neck Exam: Positive: Supple; Negative: JVD, thyromegaly Chest Exam: Positive: Clear to auscultation, Normal air movement Heart Exam: Positive: Rate Normal, Irregular Rhythm, Normal S1, Normal S2, Murmurs Telemetry: Positive: Atrial fibrillation Abdomen Exam: Positive: Normal bowel sounds, Soft; Negative: Tenderness, Hepatospenomegaly Extremity Exam: Positive: Normal pulses; Negative: Clubbing, Cyanosis, Edema Skin Exam: Positive: Nl turgor and temperature; Negative: Breakdown, Lesion Neuro Exam: Positive: Normal Speech, Strength at 5/5 X4 ext, Normal Tone Vital Signs Vital Signs Date Time Temp Pulse Resp B/P (MAP) Pulse Ox O2 Delivery O2 Flow Rate FiO2 11/17/18 23:13 60 18 148/69 (95) 88 11/17/18 20:44 98.6 Room Air Laboratory Data Labs 24H Laboratory Tests 2 11/17/18 21:07: Immature Granulocyte % (Auto) 0.4, White Blood Count 10.0, Red Blood Count 4.00, Hemoglobin 13.2, Hematocrit 40.4, Mean Corpuscular Volume 101.0H, Mean Corpuscular Hemoglobin 33.0, Mean Corpuscular Hemoglobin Concent 32.7, Red Cell Distribution Width 12.6, Platelet Count 265, Neutrophils (%) (Auto) 62.7, Lymphocytes (%) (Auto) 21.3L, Monocytes (%) (Auto) 13.4H, Eosinophils (%) (Auto) 1.5, Basophils (%) (Auto) 0.7, Neutrophils # (Auto) 6.3, Lymphocytes # (Auto) 2. 1, Monocytes # (Auto) 1.3H, Eosinophils # (Auto) 0.2, Basophils # (Auto) 0.1, Nucleated Red Blood Cells % (auto) 0.0, Prothrombin Time 14.3H, Prothromb Time International Ratio 1.14, Anion Gap 6L, Glomerular Filtration Rate 24.2L, Blood Urea Nitrogen 38H, Creatinine 2.08H, Sodium Level 145, Potassium Level 5.0, Chloride Level 111H, Carbon Dioxide Level 28, Calcium Level 8.8, Total Creatine Kinase 92, Creatine Kinase MB < 1.0, Creatine Kinase MB Relative Index 1.09, Troponin I < 0.02, Thyroid Stimulating Hormone (TSH) 1.530 CBC/BMP Laboratory Tests 11/17/18 21:07 Red Blood Count 4.00, Mean Corpuscular Volume 101.0 H, Mean Corpuscular Hemoglobin 33.0, Mean Corpuscular Hemoglobin Concent 32.7, Red Cell Distribution Width 12.6, Neutrophils (%) (Auto) 62.7, Lymphocytes (%) (Auto) 21.3 L, Monocytes (%) (Auto) 13.4 H, Eosinophils (%) (Auto) 1.5, Basophils (%) (Auto) 0.7, Neutrophils # (Auto) 6.3, Lymphocytes # (Auto) 2.1, Monocytes # (Auto) 1.3 H, Eosinophils # (Auto) 0.2, Basophils # (Auto) 0.1, Calcium Level 8.8, Total Creatine Kinase 92 Assessment/Plan 82 year old female with PMH of Dementia, afib , torsades with syncope, CKD stage 4, hypertension, hyperlipidemia, secondary hyperparathyroidism presented to the ED with Syncope and collapse x 2 in her home. Syncope and collapse patient insisting that she tripped and fell however she is not a reliable historian. rule out cardiac arrhythmia. She does have afib and torsades , She also has severe pulmonary hypertension Has pacemaker in place will place in PCU CT head negative for any acute events check orthostatic vitals. Carotid US, pacemaker check if not recently done. Her last echo from 08/11 showed Severe mitral regurgitation. Moderate tricuspid regurgitation. Moderate to severe pulmonary hypertension. Estimated right ventricle systolic pressure: At least 57 mmHg assuming right pressure of at least 20 mmHg. Afib continue amiodarone and atenolol continue eliquis. CKD stage 4 stable continue torsemide. Secondary hyperparathyroidism continue sensipar and calcitriol Hyperlipidemia continue statin CAD s/p stents continue plavix, statin and betablocker Hypertension continue hydralazine, atenolol Plan / VTE VTE Prophylaxis Ordered?: Yes CATHIE OKEEFE MD Nov 18, 2018 00:57
[2018-11-18 04:00] VITALS: BP_SYST 140; BP_SYST 149; BP_SYST 151; BP_DIAS 71; BP_DIAS 73; BP_DIAS 75
[2018-11-18 05:55] LABS: BASO # 0.1 10^3/uL (0.0-0.2); EOS # 0.2 10^3/uL (0.0-0.50); HEMATOCRIT 38.9 % (36.0-47.0); HEMOGLOBIN 12.5 g/dl (12.0-15.5); LYMPH # 2.1 10^3/uL (1.5-4.5); LYMPH % 25.9 % (24.0-44.0); MEAN CORPUSCULAR HEMOGLOBIN 32.2 pg (27.0-33.0); MEAN CORPUSCULAR HGB CONC 32.1 g/dl (32.0-36.5); MEAN CORPUSCULAR VOLUME 100.3 fl (80.0-96.0); MONO # 1.2 10^3/uL (0.0-0.8); MONO % 14.2 % (0.0-5.0); NEUTROPHILS # 4.6 10^3/uL (1.8-7.7); NEUTROPHILS % 56.5 % (36.0-66.0); PLATELET COUNT, AUTOMATED 251 10^3/uL (150-450); RED BLOOD COUNT 3.88 10^6/uL (4.00-5.40); WHITE BLOOD COUNT 8.1 10^3/uL (4.0-10.0)
[2018-11-18 06:32] LABS: BLOOD UREA NITROGEN 40 MG/DL (7-18); CALCIUM LEVEL 8.3 MG/DL (8.8-10.2); CARBON DIOXIDE LEVEL 28 MEQ/L (21-32); CHLORIDE LEVEL 114 MEQ/L (98-107); CK-MB VALUE MASS < 1.0 NG/ML (<3.6); CPK CREATINE PHOSPHOKINASE 64 U/L (26-192); CREATININE FOR GFR 2.24 MG/DL (0.55-1.30); GLOMERULAR FILTRATION RATE 22.2 (>32); GLUCOSE, FASTING 81 MG/DL (70-100); MB/CK RELATIVE INDEX 1.56 (< OR =4); POTASSIUM SERUM 4.7 MEQ/L (3.5-5.1); SODIUM LEVEL 147 MEQ/L (136-145); TROPONIN I < 0.02 NG/ML (< 0.10)
[2018-11-18 08:00] VITALS: BP 175/81
--- NOTE | 2018-11-18 08:36 | REP ---
Clinical: Trauma/fall. Technique: Internal rotation, external rotation, and Y view of the left shoulder. Findings: Generalized age-related osteopenia and degenerative changes are appreciated. No acute fracture dislocation. Acromioclavicular and glenohumeral joints are intact. No periarticular calcifications or loose bodies are identified. The subacromial space is normal. The surrounding soft tissues are unremarkable. Impression: No acute fracture dislocation appreciated. Electronically Signed by Bc Franks MD 11/18/2018 07:25 A
[2018-11-18] MEDS ORDERED: TORSEMIDE 5MG TABLET PO SCH (09:00)
[2018-11-18] MEDS ORDERED: ATENOLOL 12.5MG PER 1/2 TABLET PO SCH (09:00)
[2018-11-18] MEDS ORDERED: AMIODARONE 200 MG TAB (PACERONE) PO SCH (09:00)
[2018-11-18] MEDS: PRAVASTATIN 20 MG TAB PO SCH (09:25)
[2018-11-18] MEDS: DOCUSATE SODIUM 100 MG CAP PO SCH ×2 (09:26→20:29)
[2018-11-18] MEDS: **hydrALAZINE HCL** 25 MG TAB PO SCH (09:26)
[2018-11-18] MEDS: CALCITRIOL 0.25 MCG CAP (S0169) PO SCH (09:26)
[2018-11-18] MEDS: CLOPIDOGREL 75 MG TAB PO SCH (09:26)
--- NOTE | 2018-11-18 09:46 | IPNPDOC ---
Subjective Date Seen The patient was seen on 11/18/18. Subjective Chief Complaint/HPI no discomfort, no palpitations, no dyspnea Constitutional: Denies: Chills ENT: Denies: Head Aches Pulmonary: Denies: Dyspnea, Cough Cardiovascular: Denies: Chest Pain, Palpitations Gastrointestinal: Denies: Nausea, Abdominal Pain Genitourinary: Denies: Dysuria Hematologic: Denies: Bruising Musculoskeletal: Reports: Other Symptoms (mild left shoulder discomfort) Neurological: Denies: Weakness Psych: Reports: Anxiety (expresses concern about her pet at home) Objective Physical Examination General Exam: Positive: Alert, Cooperative, No Acute Distress Eye Exam: Positive: PERRLA, Conjunctiva & lids normal, EOMI; Negative: Sclera icteric ENT Exam: Positive: Atraumatic, Mucous membr. moist/pink, Pharynx Normal Neck Exam: Positive: Supple; Negative: JVD, thyromegaly Chest Exam: Positive: Clear to auscultation, Normal air movement Heart Exam: Positive: Rate Normal, Irregular Rhythm, Normal S1, Normal S2, Murmurs (soft LSB) Telemetry: Positive: Atrial fibrillation Abdomen Exam: Positive: Normal bowel sounds, Soft; Negative: Tenderness, Hepatospenomegaly Extremity Exam: Positive: Normal pulses, Tenderness (minimal tenderness left shoulder with normal range of motion and no deformity); Negative: Clubbing, Cyanosis, Edema, Swelling Skin Exam: Positive: Nl turgor and temperature; Negative: Breakdown, Lesion Neuro Exam: Positive: Normal Speech, Strength at 5/5 X4 ext, Normal Tone Assessment /Plan Problems (1) Tachycardia-bradycardia syndrome Status: Chronic Response to Treatment: Stable Problem Text: she has pacemaker, dual chamber. occasional pacemaker spikes are observed. HR is consistently <60. Will hold amiodarone and atenolol for now. Request cardiology eval of her pacemaker. she also has hx of torsade, which is why she was maintained on amiodarone. will monitor. interrogation of her pacemaker might reveal useful information (2) Syncope and collapse Status: Acute Response to Treatment: Stable Discussed With: Club Manager Problem Specific Plan: Consult Specialist Problem Text: patient believes that she tripped and denies LOC but her memory is not reliable. (3) Chronic kidney disease, stage 4 (severe) Status: Chronic Response to Treatment: Worse Problem Text: creatinine is higher than admit, usually she is in low 2's with respect to creatinine. (4) Dementia Status: Chronic Response to Treatment: Stable Problem Text: manages at home with daughter who lives nearby. Plan/VTE VTE Prophylaxis Ordered?: Yes VS, I&O, 24H, Fishbone Vital Signs/I&O Vital Signs Date Time Temp Pulse Resp B/P (MAP) Pulse Ox O2 Delivery O2 Flow Rate FiO2 11/18/18 08:00 97.5 53 18 175/81 (112) 98 11/18/18 01:26 Room Air I&O- Last 24 Hours up to 6 AM 11/18/18 06:00 Output Total 250 ml Balance -250 ml Laboratory Data 24H LABS Laboratory Tests 2 11/17/18 21:07: Immature Granulocyte % (Auto) 0.4, White Blood Count 10.0, Red Blood Count 4.00, Hemoglobin 13.2, Hematocrit 40.4, Mean Corpuscular Volume 101.0H, Mean Corpuscular Hemoglobin 33.0, Mean Corpuscular Hemoglobin Concent 32.7, Red Cell Distribution Width 12.6, Platelet Count 265, Neutrophils (%) (Auto) 62.7, Lymphocytes (%) (Auto) 21.3L, Monocytes (%) (Auto) 13.4H, Eosinophils (%) (Auto) 1.5, Basophils (%) (Auto) 0.7, Neutrophils # (Auto) 6.3, Lymphocytes # (Auto) 2.1, Monocytes # (Auto) 1.3H, Eosinophils # (Auto) 0.2, Basophils # (Auto) 0.1, Nucleated Red Blood Cells % (auto) 0.0, Prothrombin Time 14.3H, Prothromb Time International Ratio 1.14, Anion Gap 6L, Glomerular Filtration Rate 24.2L, Blood Urea Nitrogen 38H, Creatinine 2.08H, Sodium Level 145, Potassium Level 5.0, Chloride Level 111H, Carbon Dioxide Level 28, Calcium Level 8.8, Total Creatine Kinase 92, Creatine Kinase MB < 1.0, Creatine Kinase MB Relative Index 1.09, Troponin I < 0.02, Thyroid Stimulating Hormone (TSH) 1.530 11/18/18 05:39: Immature Granulocyte % (Auto) 0.4, White Blood Count 8.1, Red Blood Count 3.88L, Hemoglobin 12.5, Hematocrit 38.9, Mean Corpuscular Volume 100.3H, Mean Corpuscular Hemoglobin 32.2, Mean Corpuscular Hemoglobin Concent 32.1, Red Cell Distribution Width 12.9, Platelet Count 251, Neutrophils (%) (Auto) 56.5, Lymph ocytes (%) (Auto) 25.9, Monocytes (%) (Auto) 14.2H, Eosinophils (%) (Auto) 2.0, Basophils (%) (Auto) 1.0, Neutrophils # (Auto) 4.6, Lymphocytes # (Auto) 2.1, Monocytes # (Auto) 1.2H, Eosinophils # (Auto) 0.2, Basophils # (Auto) 0.1, Nucleated Red Blood Cells % (auto) 0.0, Anion Gap 5L, Glomerular Filtration Rate 22.2L, Blood Urea Nitrogen 40H, Creatinine 2.24H, Sodium Level 147H, Potassium Level 4.7, Chloride Level 114H, Carbon Dioxide Level 28, Calcium Level 8.3L, Total Creatine Kinase 64, Creatine Kinase MB < 1.0, Creatine Kinase MB Relative Index 1.56, Troponin I < 0.02 CBC/BMP Laboratory Tests 11/17/18 21:07 Red Blood Count 4.00, Mean Corpuscular Volume 101.0 H, Mean Corpuscular Hemoglobin 33.0, Mean Corpuscular Hemoglobin Concent 32.7, Red Cell Distribution Width 12.6, Neutrophils (%) (Auto) 62.7, Lymphocytes (%) (Auto) 21.3 L, Monocytes (%) (Auto) 13.4 H, Eosinophils (%) (Auto) 1.5, Basophils (%) (Auto) 0.7, Neutrophils # (Auto) 6.3, Lymphocytes # (Auto) 2.1, Monocytes # (Auto) 1.3 H, Eosinophils # (Auto) 0.2, Basophils # (Auto) 0.1, Calcium Level 8.8, Total Creatine Kinase 92 11/18/18 05:39 Red Blood Count 3.88 L, Mean Corpuscular Volume 100.3 H, Mean Corpuscular Hemoglobin 32.2, Mean Corpuscular Hemoglobin Concent 32.1, Red Cell Distribution Width 12.9, Neutrophils (%) (Auto) 56.5, Lymphocytes (%) (Auto) 25.9, Monocytes (%) (Auto) 14.2 H, Eosinophils (%) (Auto) 2.0, Basophils (%) (Auto) 1.0, Neutrophils # (Auto) 4.6, Lymphocytes # (Auto) 2.1, Monocytes # (Auto) 1.2 H, Eosinophils # (Auto) 0.2, Basophils # (Auto) 0.1, Calcium Level 8.3 L, Total Creatine Kinase 64 Kirby Vick MD Nov 18, 2018 09:34
[2018-11-18 10:26] LABS: MAGNESIUM LEVEL 2.5 MG/DL (1.8-2.4)
[2018-11-18 12:00] VITALS: BP_SYST 124; BP_SYST 141; BP_SYST 159; BP_DIAS 68; BP_DIAS 73; BP_DIAS 88
--- NOTE | 2018-11-18 15:24 | REP ---
Clinical: Headaches and dizziness with blurred vision . Technique: Goel scale and color Doppler evaluation using linear high frequency transducer Findings: Two-dimensional ogel scale and color images demonstrate minimal atheromatous plaquing with normal laminar flow and no appreciable narrowing. Color Doppler interrogation demonstrates normal arterial wave patterns and velocities with no significant spectral broadening. Normal flow direction is appreciated in the bilateral vertebral arteries. RIGHT (cm/s) LEFT (cm/s) ICA peak systolic velocity 38.3 49.5 ICA diastolic velocity 10.8 14.7 ECA peak systolic velocity 59.0 44.8 CCA peak systolic velocity 70.6 71.9 ICA/CCA ratio 0.54 0.69 Impression: No hemodynamically significant areas of narrowing or stenosis appreciated. Based on set standards narrowing falls within the normal/less than 50% range. Electronically Signed by Bc Franks MD 11/18/2018 03:15 P
--- NOTE | 2018-11-18 15:35 | ECGEPIP ---
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
[2018-11-18 16:00] VITALS: BP 153/65
--- NOTE | 2018-11-18 18:22 | CR ---
CARDIOLOGY CONSULTATION: DATE OF SERVICE: 11/18/2018 REFERRING PHYSICIAN: Kirby Vick MD INDICATION: Syncopal spell - pacemaker malfunction? Ventricular tachyarrhythmia? HISTORY This 82-year-old lady who is familiar to our cardiology service having a history of hypertensive and mitral valvular heart disease complicated by abnormal EKG, sustained atrial fibrillation, AV block/post single chamber pacemaker implant March 03, 2017 and paroxysmal polymorphic ventricular tachycardia on amiodarone antiarrhythmic therapy. She was last seen in our office last April and pacemaker testing at that time showed ample battery voltage with good intracardiac electrograms and pacing thresholds. She actually used the pacemaker only 12% of the time. Customarily, she is ambulatory but November 17, 2018 she called her family after she had fallen on two separate occasions. She cannot recall the precise details (has a history of dementia). Her family transported her to the emergency room and on presentation she was able to ambulate. Vital signs showed a heart rate of 63 beats per minute, blood pressure 181/85, respiratory rate 16 with O2 saturation 100%. She was admitted to a telemetry unit for observation and maintained on her customary medications. KNOWN PAST CARDIAC DISEASE/EVENTS/ TESTS: March 2017. An echocardiogram showed normal left ventricular size, wall thickness and wall motion, severely dilated left atrium, normal right ventricular size and systolic function with moderate pulmonary hypertension (pulmonary arterial systolic pressure 48 mmHg) and severely dilated right atrium. Mild mitral annular calcification with mild insufficiency. Normal appearing and functioning aortic valve. August 11, 2017. A followup echocardiogram was performed because of ventricular tachycardia and findings were quite similar, except for her mitral insufficiency was now severe? Pulmonary arterial pressure was also higher at 57 mmHg with IVC dilated with reduced respiratory collapse in keeping with right heart failure. September 2017. She underwent cardiac catheterization and two coronary stents were placed. CARDINAL CARDIAC SYMPTOMS: At this point she is chiefly limited by fatigue. Denies any chest discomfort, shortness of breath. Customarily does not have an awareness of her heart action. Denies lightheadedness with her fall. She did sustain some blunt trauma to her left shoulder aggravated by local arm movements. No lateralizing neurological deficit. PHYSICAL EXAMINATION: On examination, pleasantly demented elderly lady of medium body build, lay comfortably with the head of bed elevated 30 degrees. Heart rate 56 bpm and irregular, blood pressure 140/68. Respiratory rate 18, O2 saturation 96% on room air. Afebrile. Weight 146 pounds, height 62 inches, BMI 26.8. No obvious pallor or central cyanosis. Normal oral moisture. Trachea midline. Neck veins did not appear to be elevated. Normal chest configuration and chest expansion with normal respiratory effort. Well-healed pacemaker incision left subclavian region. INVESTIGATIONS: Blood work has shown a stable hemoglobin today measuring 12.5. Normal white blood cell count and platelet counts. Electrolytes have been essentially stable with sodium 145, potassium f5, BUN 38, creatinine 2.1, random glucose 98. Normal serum calcium and magnesium level, serial Troponin I levels have been negative. Ultra sensitive TSH has been normal at 1.5. EKG: Tracing taken in the emergency room yesterday reviewed independently shows underlying atrial fibrillation with somewhat slow ventricular response averaging 57 bpm. Appropriate VVI pacer function with mostly sensed spontaneous QRS complexes and one isolated paced complex. Spontaneous complexes showing normal axis and QRS duration with slow precordial R-wave progression and small inferior Q-waves, possibly related to her body habitus. Could not rule out a prior inferior infarction. Inferolateral ST/T-wave abnormalities. Other than a slower rate, not significantly changed from August 10, 2017. PACEMAKER INTERROGATION: Device manufacture - [employer]. Device model - ACCOLADE, MRI compatible, model #L310, serial #[id number]. Implanted March 03, 2017. Initial programmed rate of 50 bpm. We have changed this to 60 bpm. Arrhythmia log - no tachyarrhythmias documented. Paces 25% of the time. Battery voltage - okay with estimated battery life 9 years, magnet rate 100 bpm. R wave amplitude 4.4 mV. Lead impedance - stable at 749 ohms. Pacing threshold - 1.4 V/0.4 ms - essentially stable. IMPRESSION / PLAN: 1. Recurrent falls: Unfortunately with the patient's dementia, she is unable to provide specific details regarding her collapses, but we have been able to define that these were not related to any tachyarrhythmia or pacemaker malfunction. 2. Paroxysmal polymorphic ventricular tachycardia: It appears her current amiodarone antiarrhythmic therapy is suppressing the previously noted rhythm disturbance. It is suspected that her arrhythmia may well have been provoked by myocardial ischemia. An implantable defibrillator was not placed. 3. AV block: Single chamber ventricular demand pacemaker in situ with complete pacemaker interrogation today confirming appropriate performance with ample battery voltage. We have elected to increase her low pacing rate from 50 to 60 bpm. Next complete pacer check need not be prior to 1 year. 4. Chronic atrial fibrillation: Believed to be related to chronic hypertension and mitral valve disorder. Has a controlled ventricular response documented today. Has been free of systemic thromboembolic event or significant hemorrhagic complication on her current oral anticoagulation therapy. 5. Hypertensive heart disease (benign with heart failure)/heart failure (chronic - diastolic): Appears to be free of any symptom or sign of congestion. Electrolytes have been in balance with stable chronic renal insufficiency. We would suggest continuing the same combination atenolol, low-dose torsemide and hydralazine. 6. Coronary artery disease (ione vessel)/post coronary artery stenting: No apparent symptom or sign of current myocardial ischemia. No EKG repolarization changes from last July 2017. Remains on protective combination atenolol, Plavix, and pravastatin. 7. Mitral valve disorder (non rheumatic): Prior echocardiographic studies approximately 1 year apart somewhat confusing. Has degenerative mitral valve disorder with moderate to severe insufficiency. At this point, does not appear to have any signs of congestion or symptoms or sign of endocarditis. She of course is not a candidate for invasive valve repair. Continued optimal blood pressure control would be considered lennon management. Cardiology will not plan on continuing to monitor her but appreciate the opportunity to participate in her care. Best regards.
[2018-11-18 20:00] VITALS: BP 145/67
[2018-11-18 23:59] VITALS: BP 148/65
[2018-11-19 04:00] VITALS: BP 147/71
[2018-11-19 05:11] LABS: BASO # 0.1 10^3/uL (0.0-0.2); EOS # 0.2 10^3/uL (0.0-0.50); EOS % 2.6 % (0.0-3.0); HEMATOCRIT 38.6 % (36.0-47.0); HEMOGLOBIN 12.3 g/dl (12.0-15.5); LYMPH % 26.6 % (24.0-44.0); MEAN CORPUSCULAR HEMOGLOBIN 31.7 pg (27.0-33.0); MEAN CORPUSCULAR HGB CONC 31.9 g/dl (32.0-36.5); MEAN CORPUSCULAR VOLUME 99.5 fl (80.0-96.0); MONO # 1.1 10^3/uL (0.0-0.8); MONO % 13.7 % (0.0-5.0); NEUTROPHILS # 4.3 10^3/uL (1.8-7.7); NEUTROPHILS % 55.7 % (36.0-66.0); PLATELET COUNT, AUTOMATED 247 10^3/uL (150-450); RED BLOOD COUNT 3.88 10^6/uL (4.00-5.40); WHITE BLOOD COUNT 7.6 10^3/uL (4.0-10.0)
[2018-11-19 05:19] LABS: CALCIUM LEVEL 8.3 MG/DL (8.8-10.2); CREATININE FOR GFR 2.03 MG/DL (0.55-1.30); GLOMERULAR FILTRATION RATE 24.9 (>32); POTASSIUM SERUM 4.3 MEQ/L (3.5-5.1)
[2018-11-19 08:00] VITALS: BP 139/77
[2018-11-19] MEDS ORDERED: SLF 3 ML SYR IV PRN (08:15)
[2018-11-19] MEDS ORDERED: ATENOLOL 12.5MG PER 1/2 TABLET PO SCH (09:00)
[2018-11-19] MEDS ORDERED: AMIODARONE 200 MG TAB (PACERONE) PO SCH (09:00)
[2018-11-19] MEDS: DOCUSATE SODIUM 100 MG CAP PO SCH (09:00)
[2018-11-19] MEDS: CLOPIDOGREL 75 MG TAB PO SCH (09:10)
[2018-11-19] MEDS: CALCITRIOL 0.25 MCG CAP (S0169) PO SCH (09:10)
[2018-11-19] MEDS: APIXABAN 5 MG TAB (ELIQUIS) PO SCH (09:10)
[2018-11-19] MEDS: PRAVASTATIN 20 MG TAB PO SCH (09:11)
[2018-11-19] MEDS: **hydrALAZINE HCL** 25 MG TAB PO SCH (09:11)
[2018-11-19 10:26] VITALS: BP 139/77
--- NOTE | 2018-11-19 11:42 | DSES ---
DATE OF ADMISSION: 11/18/2018 DATE OF DISCHARGE: 11/19/2018 Ms. Eric was admitted after a fall at home. It was not clear whether she had simply tripped or whether she had lost consciousness. She does have a history of syncope associated with polymorphic ventricular tachycardia and underlying atrial fibrillation. For control of both problems, she had been on amiodarone 200 mg a day, atenolol 12.5 mg a day, and taking apixaban 5 mg daily. She has unusual dose. It is not clear whether she is on this dose because of her dementia, making it hard for her to adhere to a twice-a-day schedule, but that would be my supposition based on the unusual dosing schedule. Because it was unclear whether she had suffered a syncopal event or actually just a trip and fall, she was admitted, monitored. Serial enzymes were negative. Monitor showed only bradycardia with atrial fibrillation (AFib) background. To confirm that there was no episode of ventricular tachycardia, her pacemaker was interrogated by Dr. Pena. No evidence of pacemaker dysfunction or tachyarrhythmia was identified. Dr. Pena was able to affirm that the pacemaker is functioning nominally. She had some left shoulder pain related to fall, but it is not limiting her movements or her eating. ASSESSMENT: and discharge diagnosis: 1:Trip and fall with 2: suspicion of syncope with dysrhythmia. Monitoring revealed no evidence of dysrhythmia other than known 3: atrial fibrillation with bradycardia 4:Hypertension, 5:hypercholesterolemia, 6:dementia. PLAN: She will be discharged on her usual medications, including amiodarone 200 mg daily, apixaban 5 mg daily, ascorbic acid 500 mg daily, atenolol 12.5 mg daily, calcitriol 0.25 mcg daily, Sensipar 30 mg two times per week, clopidogrel 75 mg daily, hydralazine 50 mg daily, potassium citrate 10 mEq daily, pravastatin 40 mg daily, torsemide 2.5 mg daily. The labeling for the Eliquis is supposed to be 2.5 mg by mouth twice a day. Ideally, hydralazine should also be dosed in a similar way, 25 mg by mouth twice a day, but again there may be medication adherence problems as the result of her dementia. Activity will be as tolerated. She should walk with assistive devices when possible to reduce risk for falling, although she was deemed safe for discharge by physical therapy (PT) evaluation, and followup with primary care provider in 1 week, ideally. LAUREN
[2018-11-19] MEDS ORDERED: SLF 3 ML SYR IV SCH (14:00)
[2018-11-20] MEDS ORDERED: CINACALCET 30 MG TAB (SENSIPAR) PO SCH (09:00)
== END 2018-11-19 12:27 | disposition home or self-care (01) | DRG 312 ==
LOC: M ED 20:43 → M ED INP 11-18 00:05 → M PCU 11-18 01:43
PROVIDERS: ADMIT Internal Medicine Nephrology; ATTEND Family Medicine
DX: R55 Syncope and collapse (principal); N18.4 Chronic kidney disease, stage 4 (severe); N25.81 Secondary hyperparathyroidism of renal origin; I13.0 Hypertensive heart and chronic kidney disease with heart failure and stage 1 through stage 4 chronic kidney disease, or unspecified chronic kidney disease; I50.32 Chronic diastolic (congestive) heart failure; I48.2 Chronic atrial fibrillation; F34.1 Dysthymic disorder; E78.00 Pure hypercholesterolemia, unspecified; F03.90 Unspecified dementia, unspecified severity, without behavioral disturbance, psychotic disturbance, mood disturbance, and anxiety; Z79.899 Other long term (current) drug therapy; E78.5 Hyperlipidemia, unspecified; M81.0 Age-related osteoporosis without current pathological fracture; I25.10 Atherosclerotic heart disease of native coronary artery without angina pectoris; Z95.2 Presence of prosthetic heart valve; M50.30 Other cervical disc degeneration, unspecified cervical region; I27.20 Pulmonary hypertension, unspecified; I08.1 Rheumatic disorders of both mitral and tricuspid valves; Z95.0 Presence of cardiac pacemaker; R29.6 Repeated falls

== ENCOUNTER → 2020-08-16 | Outpatient (REF) | payer MEDICARE ==
[~2020-08-16] MED LIST changes: -AMIO200T PO; +AMIO200T3 PO; +ASCO250T20 PO; +CLOP75TA2 PO; +ELIQ2.5T PO; +HYDR25TA PO; +PRAV40TA2 PO; -SIMV10TA2 PO; +SIMV10TA21 PO; -SIMV40TA2 PO; +SIMV40TA20 PO; -VITA1TAB23 PO
[2020-08-16 16:41] LABS: HEMATOCRIT 43.8 % (36.0-47.0); MEAN CORPUSCULAR HEMOGLOBIN 33.1 pg (27.0-33.0); MEAN CORPUSCULAR VOLUME 103.5 fl (80.0-96.0); PLATELET COUNT, AUTOMATED 227 10^3/uL (150-450); RED BLOOD COUNT 4.23 10^6/uL (4.00-5.40); WHITE BLOOD COUNT 9.1 10^3/uL (4.0-10.0)
[2020-08-16 17:17] LABS: CHOLESTEROL RISK RATIO 2.949 (<5); FREE T4 1.48 NG/DL (0.76-1.46); THYROID STIMULATING HORMONE 0.96 uIU/ML (0.358-3.740)
[2020-08-16 17:19] LABS: TOTAL 25(OH) VITAMIN D 27.4 NG/ML (30.0-100.0)
== END ==
LOC: M SFHCADAM 15:17
PROVIDERS: ATTEND Family Medicine
DX: N18.32 Chronic kidney disease, stage 3b (principal); E78.5 Hyperlipidemia, unspecified; I48.0 Paroxysmal atrial fibrillation
CPT/HCPCS: 80061; 82306; 84439; 84443; 85027; 86580; 99497; G0463

== ENCOUNTER → 2020-09-05 | Outpatient (CLI) | payer MEDICARE ==
--- NOTE | 2020-09-05 16:33 | REP ---
INDICATION: LEFT HIP PAIN. COMPARISON: None TECHNIQUE: Two views FINDINGS: A total knee prosthesis is in place. There is no acute fracture or destructive osseous lesion. Mild to moderate chronic changes are seen involving the hip. IMPRESSION: As above <Electronically signed by Jones Aiken > 09/05/20 [id number]
--- NOTE | 2020-09-05 16:35 | REP ---
INDICATION: LEFT HIP PAIN. COMPARISON: None TECHNIQUE: AP and lateral views FINDINGS: A total knee prosthesis is in place. There is no evidence of an acute fracture or destructive osseous lesion. IMPRESSION: As above <Electronically signed by Jones Aiken > 09/05/20 [id number]
== END ==
LOC: M ADAMS 16:10
PROVIDERS: ATTEND Physician Assistant
DX: M25.552 Pain in left hip (principal); Z96.652 Presence of left artificial knee joint
CPT/HCPCS: 73552; 73590; G0463

== ENCOUNTER 2020-09-29 17:19 | Emergency (ER) | payer MEDICARE ==
[~2020-09-29] VITALS: Ht 157.5 cm; Wt 68.2 kg
[2020-09-29] MEDS ORDERED: TRAM50TA2 (17:33)
[2020-09-29] MEDS ORDERED: ELIQ2.5T PO (17:33)
--- NOTE | 2020-09-29 18:12 | REP ---
INDICATION: trauma. COMPARISON: Comparison radiographs September 05, 2020.. TECHNIQUE: AP view of the pelvis and AP and frogleg views of the left hip are provided. FINDINGS: Bony pelvic ring is intact. There is diffuse osteopenia. No pelvic or sacral fracture is seen. Proximal femurs are intact. There is mild osteoarthritic spurring and joint space narrowing the left hip. Degenerative sclerosis and spur formation is seen at the symphysis pubis. Periarticular soft tissues are unremarkable. IMPRESSION: No fracture seen. Osteoarthritis and diffuse osteopenia. <Electronically signed by Ismael Martinez > 09/29/20 [id number]
[2020-09-29] MEDS ORDERED: ACETAMINOPHEN TAB 650MG DOSE (2X325MG) PO ONE (20:35)
[2020-09-29 21:21] LABS: BASO # 0.1 10^3/uL (0.0-0.2); BASO % 0.5 % (0.0-1.0); EOS # 0.1 10^3/uL (0.0-0.5); EOS % 0.8 % (0.0-3.0); HEMATOCRIT 38.6 % (36.0-47.0); HEMOGLOBIN 12.3 g/dl (12.0-15.5); LYMPH # 2.4 10^3/uL (1.5-5.0); LYMPH % 18.6 % (24.0-44.0); MEAN CORPUSCULAR HGB CONC 31.9 g/dl (32.0-36.5); MEAN CORPUSCULAR VOLUME 103.5 fl (80.0-96.0); MONO # 1.7 10^3/uL (0.0-0.8); NEUTROPHILS # 8.7 10^3/uL (1.5-8.5); NEUTROPHILS % 66.7 % (36.0-66.0); PLATELET COUNT, AUTOMATED 236 10^3/uL (150-450); RED BLOOD COUNT 3.73 10^6/uL (4.00-5.40)
[2020-09-29 21:33] LABS: INR 1.12; PROTHROMBIN TIME 14.7 SECONDS (12.5-14.3)
[2020-09-29 21:34] LABS: PARTIAL THROMBOPLASTIN TIME 30.1 SECONDS (24.2-38.5)
[2020-09-29 21:36] LABS: CALCIUM LEVEL 9.6 MG/DL (8.8-10.2); CREATININE FOR GFR 2.21 MG/DL (0.55-1.30); GLOMERULAR FILTRATION RATE 22.5 (>32); POTASSIUM SERUM 4.4 MEQ/L (3.5-5.1)
[2020-09-29 21:37] LABS: MONO % 12.9 % (2.0-8.0)
--- NOTE | 2020-09-29 21:53 | REPVR ---
PROCEDURE INFORMATION: Exam: CT Left Lower Extremity Without Contrast, Hip Exam date and time: 09/29/2020 8:38 PM Age: 84 years old Clinical indication: Injury or trauma; Fall; Blunt trauma; Hip; Left; Additional info: Trauma fall/ unable to bear weight TECHNIQUE: Imaging protocol: CT of the Left lower extremity without contrast was performed. Exam focused on the hip. Radiation optimization: All CT scans at this facility use at least one of these dose optimization techniques: automated exposure control; mA and/or kV adjustment per patient size (includes targeted exams where dose is matched to clinical indication); or iterative reconstruction. COMPARISON: CR Hip,AP,LAT to include Pelvis LEFT 09/29/2020 5:35 PM FINDINGS: Bones/joints: No acute fracture or dislocation of the left hip. Hypertrophic arthropathy is seen at the pubic symphysis. A few small nonspecific sclerotic lesions are noted within the left ischium. Left hip arthropathy. A small left femoral subcapital spur is identified. There is narrowing of the left hip joint space. Soft tissues: Soft tissue swelling is identified posterior to the left gluteus landen muscle. A hyperdense mass is visualized in this region, consistent with a hematoma in the setting of trauma. This measures 5.2 x 4.6 x 2.6 cm. Complex fluid/hematoma also visualized within the left gluteus landen muscle inferiorly measuring approximately 5.1 x 4.5 x 5.8 cm as a whole. Vasculature: Atherosclerotic changes. Reproductive: The uterus is absent. IMPRESSION: 1. No acute fracture or dislocation of the left hip. 2. Soft tissue swelling is identified posterior to the left gluteus landen muscle. A hyperdense mass is visualized in this region, consistent with a hematoma in the setting of trauma. Complex fluid/hematoma also visualized within the left gluteus landen muscle inferiorly. A follow-up CT or MRI is recommended, as clinically indicated. 3. Left hip arthropathy. 4. Additional findings described above. Electronically signed by: Jah Haley On 09/29/2020 21:53:04 PM
[2020-09-29] MEDS ORDERED: ANEC4CRE3 TOP (22:39)
[2020-09-29 22:53] VITALS: BP 158/72
== END 2020-09-29 22:54 | disposition home or self-care (01) ==
LOC: M ED 17:19
DX: S70.02XA Contusion of left hip, initial encounter (principal); W01.0XXA Fall on same level from slipping, tripping and stumbling without subsequent striking against object, initial encounter; Y92.89 Other specified places as the place of occurrence of the external cause; Y93.9 Activity, unspecified; Y99.9 Unspecified external cause status; M16.12 Unilateral primary osteoarthritis, left hip; M85.851 Other specified disorders of bone density and structure, right thigh; Z96.642 Presence of left artificial hip joint; I48.91 Unspecified atrial fibrillation; Z87.442 Personal history of urinary calculi; Z79.899 Other long term (current) drug therapy

== ENCOUNTER → 2020-10-05 | Outpatient (CLI) | payer MEDICARE ==
[~2020-10-05] MED LIST changes: +ANEC4CRE3 TOP; +TRAM50TA2
--- NOTE | 2020-10-05 16:47 | REP ---
INDICATION: CORONARY ARTERY DISEASE. COMPARISON: None. TECHNIQUE: PA and lateral FINDINGS: There is cardiomegaly. There is a single chamber bipolar pacemaker device in place. The lung mason are clear and the pleural angles are sharp. The osseous structures are within normal limits for the patient's age. IMPRESSION: Cardiomegaly without evidence of acute cardiopulmonary disease. <Electronically signed by Jones Aiken > 10/05/20 [id number]
== END ==
LOC: M ADAMS 15:39
PROVIDERS: ATTEND Family Medicine
DX: I51.7 Cardiomegaly (principal); I12.9 Hypertensive chronic kidney disease with stage 1 through stage 4 chronic kidney disease, or unspecified chronic kidney disease; I25.10 Atherosclerotic heart disease of native coronary artery without angina pectoris; I48.0 Paroxysmal atrial fibrillation
CPT/HCPCS: 71046; 80053; 84439; 84443; G0463

== ENCOUNTER → 2020-10-05 | Outpatient (REF) | payer MEDICARE ==
[2020-10-05 19:51] LABS: ALBUMIN 3.6 GM/DL (3.2-5.2); BILIRUBIN,TOTAL 1.1 MG/DL (0.2-1.0); CALCIUM LEVEL 9.3 MG/DL (8.8-10.2); CREATININE FOR GFR 2.41 MG/DL (0.55-1.30); FREE T4 1.47 NG/DL (0.76-1.46); GLOMERULAR FILTRATION RATE 20.3 (>32); POTASSIUM SERUM 5.3 MEQ/L (3.5-5.1); THYROID STIMULATING HORMONE 1.5 uIU/ML (0.358-3.740); TOTAL PROTEIN 6.7 GM/DL (6.4-8.2)
== END ==
LOC: M SFHCADAM 15:34
PROVIDERS: ATTEND Family Medicine
DX: I12.9 Hypertensive chronic kidney disease with stage 1 through stage 4 chronic kidney disease, or unspecified chronic kidney disease (principal); I48.0 Paroxysmal atrial fibrillation

== ENCOUNTER 2020-12-09 19:47 | Emergency (ER) | payer MEDICARE ==
[~2020-12-09] VITALS: Ht 157.5 cm; Wt 68.0 kg
[2020-12-09] MEDS ORDERED: OSTE1TAB2 PO (20:15)
[2020-12-09] MEDS ORDERED: CALC200S (20:15)
[2020-12-09] MEDS ORDERED: DICL20GE TP (20:15)
[2020-12-09] MEDS ORDERED: APAP325T4 PO (20:15)
[2020-12-09] MEDS ORDERED: OCUV1CAP3 PO (20:15)
--- NOTE | 2020-12-09 23:16 | REPVR ---
PROCEDURE INFORMATION: Exam: XR Right Knee Exam date and time: 12/09/2020 10:26 PM Age: 84 years old Clinical indication: Other: Fall one week ago TECHNIQUE: Imaging protocol: XR Right knee. Views: 4 or more views. COMPARISON: CR Knee, Ap, Lat 01/15/2014 8:58 AM FINDINGS: Bones/joints: Diffuse demineralization of the bones. Chondrocalcinosis. No acute fracture. Soft tissues: Normal. IMPRESSION: No acute abnormality. Electronically signed by: Erik Arriaza On 12/09/2020 23:15:44 PM
[2020-12-09] MEDS ORDERED: ACETAMINOPHEN TAB 650MG DOSE (2X325MG) PO ONE (23:45)
[2020-12-10 00:35] VITALS: BP 167/95
== END 2020-12-10 00:41 | disposition home or self-care (01) ==
LOC: M ED 19:47
DX: S80.01XA Contusion of right knee, initial encounter (principal); W19.XXXA Unspecified fall, initial encounter; Y92.9 Unspecified place or not applicable; Y93.9 Activity, unspecified; Y99.9 Unspecified external cause status; I48.91 Unspecified atrial fibrillation; I10 Essential (primary) hypertension; N18.30 Chronic kidney disease, stage 3 unspecified; Z88.8 Allergy status to other drugs, medicaments and biological substances

== ENCOUNTER → 2021-09-27 | Outpatient (REF) | payer MEDICARE ==
[~2021-09-27] MED LIST changes: -AMIO200T3 PO; +AMIO200T49 PO; +APAP325T4 PO; +CALC200S; +DICL20GE TP; +OCUV1CAP3 PO; +OSTE1TAB2 PO
[2021-09-27 20:23] LABS: ALBUMIN 3.6 GM/DL (3.2-5.2); BILIRUBIN,TOTAL 0.4 MG/DL (0.2-1.0); CALCIUM LEVEL 10.7 MG/DL (8.8-10.2); CHOLESTEROL RISK RATIO 2.851 (<5); CREATININE FOR GFR 1.82 MG/DL (0.55-1.30); FREE T4 1.44 NG/DL (0.76-1.46); THYROID STIMULATING HORMONE 0.462 uIU/ML (0.358-3.740); TOTAL PROTEIN 7.1 GM/DL (6.4-8.2)
== END ==
LOC: M SFHCADAM 14:34
PROVIDERS: ATTEND Family Medicine
DX: I11.9 Hypertensive heart disease without heart failure (principal); I48.0 Paroxysmal atrial fibrillation; R63.4 Abnormal weight loss; E78.5 Hyperlipidemia, unspecified

== ENCOUNTER → 2022-01-09 | Outpatient (REF) | payer MEDICARE ==
[2022-01-09 17:17] LABS: BASO # 0.1 10^3/uL (0.0-0.2); BASO % 0.6 % (0.0-1.0); EOS # 0.1 10^3/uL (0.0-0.5); HEMATOCRIT 37.2 % (36.0-47.0); HEMOGLOBIN 11.1 g/dl (12.0-15.5); LYMPH # 1.2 10^3/uL (1.5-5.0); LYMPH % 13.9 % (24.0-44.0); MEAN CORPUSCULAR HEMOGLOBIN 32.8 pg (27.0-33.0); MEAN CORPUSCULAR HGB CONC 29.8 g/dl (32.0-36.5); MEAN CORPUSCULAR VOLUME 110.1 fl (80.0-96.0); MONO # 1.5 10^3/uL (0.0-0.8); MONO % 17.6 % (2.0-8.0); NEUTROPHILS # 5.6 10^3/uL (1.5-8.5); NEUTROPHILS % 66.5 % (36.0-66.0); PLATELET COUNT, AUTOMATED 282 10^3/uL (150-450); RED BLOOD COUNT 3.38 10^6/uL (4.00-5.40); WHITE BLOOD COUNT 8.4 10^3/uL (4.0-10.0)
[2022-01-09 17:39] LABS: CALCIUM LEVEL 9.3 MG/DL (8.8-10.2); CREATININE FOR GFR 2.32 MG/DL (0.55-1.30); GLOMERULAR FILTRATION RATE 21.1 (>32); POTASSIUM SERUM 4.3 MEQ/L (3.5-5.1)
== END ==
LOC: M SFHCADAM 14:54
PROVIDERS: ATTEND Physician Assistant
DX: I12.9 Hypertensive chronic kidney disease with stage 1 through stage 4 chronic kidney disease, or unspecified chronic kidney disease (principal)

== ENCOUNTER → 2022-08-02 | Outpatient (REF) | payer MEDICARE ==
[2022-08-02 07:07] LABS: HEMATOCRIT 40.3 % (36.0-47.0); HEMOGLOBIN 12.8 g/dl (12.0-15.5); MEAN CORPUSCULAR HEMOGLOBIN 32.2 pg (27.0-33.0); MEAN CORPUSCULAR HGB CONC 31.8 g/dl (32.0-36.5); MEAN CORPUSCULAR VOLUME 101.5 fl (80.0-96.0); PLATELET COUNT, AUTOMATED 217 10^3/uL (150-450); RED BLOOD COUNT 3.97 10^6/uL (4.00-5.40); WHITE BLOOD COUNT 6.2 10^3/uL (4.0-10.0)
[2022-08-02 07:44] LABS: FREE T4 1.35 NG/DL (0.89-1.76); THYROID STIMULATING HORMONE 0.589 uIU/ML (0.55-4.78)
[2022-08-02 07:46] LABS: ALBUMIN 2.7 G/DL (3.2-5.2); ALKALINE PHOSPHATASE 99 U/L (46-116); ALT/SGPT < 9 U/L (7.0-40); AST/SGOT 19 U/L (<34); BILIRUBIN,TOTAL 0.6 MG/DL (0.3-1.2); BLOOD UREA NITROGEN 33 MG/DL (9-23); CALCIUM LEVEL 9.1 MG/DL (8.3-10.6); CARBON DIOXIDE LEVEL 26 MMOL/L (20-31); CHLORIDE LEVEL 111 MMOL/L (98-107); CREATININE FOR GFR 1.34 MG/DL (0.55-1.30); GLOMERULAR FILTRATION RATE 39.8 (>32); GLUCOSE, FASTING 82 MG/DL (74-106); PHOSPHORUS LEVEL 3.3 MG/DL (2.4-5.1); POTASSIUM SERUM 4.5 MMOL/L (3.5-5.1); PTH INTACT 54.2 PG/ML (18.5-88.0); SODIUM LEVEL 143 MMOL/L (136-145); TOTAL PROTEIN 5.9 G/DL (5.7-8.2)
== END ==
LOC: SKLAB8 07:00
PROVIDERS: ATTEND Internal Medicine
DX: N18.9 Chronic kidney disease, unspecified (principal); Z79.899 Other long term (current) drug therapy

== ENCOUNTER → 2022-08-11 | Outpatient (REF) | payer MEDICARE ==
[2022-08-11 15:37] LABS: APPEARANCE, URINE HAZY (CLEAR); BACTERIA, URINE AUTO 1+ (NEGATIVE); BILIRUBIN, URINE AUTO NEGATIVE (NEGATIVE); BLOOD, URINE BLOOD 2+ (NEGATIVE); COLOR, URINE YELLOW (YELLOW); GLUCOSE, URINE (UA) AUTO NEGATIVE (NEGATIVE); KETONE, URINE AUTO NEGATIVE (NEGATIVE); LEUKOCYTE ESTERASE, URINE AUTO 1+ (NEGATIVE); MUCUS, URINE SMALL (NEGATIVE); NITRITE, URINE AUTO NEGATIVE (NEGATIVE); PROTEIN, URINE AUTO NEGATIVE (NEGATIVE); RBC, URINE AUTO 58 /HPF (0-3); SPECIFIC GRAVITY URINE AUTO 1.016 (1.002-1.035); SQUAMOUS EPITHELIAL CELL UR AU 4 /HPF (0-6); UROBILINOGEN, URINE AUTO 0.2 mg/dL (0.0-2.0); WBC, URINE AUTO 7 /HPF (0-3)
== END ==
LOC: SKLAB8 14:05
PROVIDERS: ATTEND Internal Medicine
DX: R30.0 Dysuria (principal)

== ENCOUNTER → 2022-10-15 | Outpatient (REF) | payer MEDICARE ==
[2022-10-15 09:52] LABS: HEMATOCRIT 39.3 % (36.0-47.0); HEMOGLOBIN 12.7 g/dl (12.0-15.5); MEAN CORPUSCULAR HEMOGLOBIN 32.7 pg (27.0-33.0); MEAN CORPUSCULAR HGB CONC 32.3 g/dl (32.0-36.5); MEAN CORPUSCULAR VOLUME 101.3 fl (80.0-96.0); PLATELET COUNT, AUTOMATED 203 10^3/uL (150-450); RED BLOOD COUNT 3.88 10^6/uL (4.00-5.40); WHITE BLOOD COUNT 8.8 10^3/uL (4.0-10.0)
[2022-10-15 10:17] LABS: ALBUMIN 2.6 G/DL (3.2-5.2); ALKALINE PHOSPHATASE 99 U/L (46-116); ALT/SGPT < 9 U/L (7.0-40); AST/SGOT 23 U/L (<34); BILIRUBIN,TOTAL 0.4 MG/DL (0.3-1.2); BLOOD UREA NITROGEN 28 MG/DL (9-23); CALCIUM LEVEL 8.8 MG/DL (8.3-10.6); CARBON DIOXIDE LEVEL 24 MMOL/L (20-31); CHLORIDE LEVEL 110 MMOL/L (98-107); CREATININE FOR GFR 1.33 MG/DL (0.55-1.30); GLOMERULAR FILTRATION RATE 40.2 (>32); GLUCOSE, FASTING 103 MG/DL (74-106); POTASSIUM SERUM 4.4 MMOL/L (3.5-5.1); SODIUM LEVEL 142 MMOL/L (136-145); TOTAL PROTEIN 5.7 G/DL (5.7-8.2)
== END ==
LOC: SKLAB8 07:00
PROVIDERS: ATTEND Internal Medicine
DX: U07.1 COVID-19 (principal); Z79.899 Other long term (current) drug therapy

== ENCOUNTER → 2023-02-07 | Outpatient (REF) | payer MEDICARE ==
[2023-02-07 08:28] LABS: HEMATOCRIT 43.5 % (36.0-47.0); HEMOGLOBIN 13.9 g/dl (12.0-15.5); MEAN CORPUSCULAR HEMOGLOBIN 32.2 pg (27.0-33.0); MEAN CORPUSCULAR VOLUME 100.7 fl (80.0-96.0); PLATELET COUNT, AUTOMATED 250 10^3/uL (150-450); RED BLOOD COUNT 4.32 10^6/uL (4.00-5.40)
[2023-02-07 09:02] LABS: ALBUMIN 2.9 G/DL (3.2-5.2); ALKALINE PHOSPHATASE 107 U/L (46-116); ALT/SGPT < 9 U/L (7.0-40); AST/SGOT 10 U/L (<34); BILIRUBIN,TOTAL 0.5 MG/DL (0.3-1.2); BLOOD UREA NITROGEN 46 MG/DL (9-23); CALCIUM LEVEL 9.1 MG/DL (8.3-10.6); CARBON DIOXIDE LEVEL 27 MMOL/L (20-31); CHLORIDE LEVEL 110 MMOL/L (98-107); CREATININE FOR GFR 1.62 MG/DL (0.55-1.30); GLOMERULAR FILTRATION RATE 31.9 (>32); GLUCOSE, FASTING 112 MG/DL (74-106); POTASSIUM SERUM 4.5 MMOL/L (3.5-5.1); SODIUM LEVEL 145 MMOL/L (136-145); TOTAL PROTEIN 6.3 G/DL (5.7-8.2)
== END ==
LOC: SKLAB8 07:00
PROVIDERS: ATTEND Internal Medicine
DX: N18.9 Chronic kidney disease, unspecified (principal)

== ENCOUNTER → 2023-02-13 | Outpatient (REF) | payer MEDICARE ==
[2023-02-13 12:49] LABS: CREATININE FOR GFR 1.56 MG/DL (0.55-1.30); GLOMERULAR FILTRATION RATE 33.3 (>32); POTASSIUM SERUM 4.4 MMOL/L (3.5-5.1)
== END ==
LOC: SKLAB8 11:18
PROVIDERS: ATTEND Internal Medicine
DX: M25.562 Pain in left knee (principal); Z96.652 Presence of left artificial knee joint

== ENCOUNTER → 2023-05-16 | Outpatient (REF) | payer MEDICARE ==
[2023-05-16 09:32] LABS: HEMOGLOBIN 14.5 g/dl (12.0-15.5); MEAN CORPUSCULAR HEMOGLOBIN 32.6 pg (27.0-33.0); MEAN CORPUSCULAR VOLUME 98.9 fl (80.0-96.0); PLATELET COUNT, AUTOMATED 205 10^3/uL (150-450); RED BLOOD COUNT 4.45 10^6/uL (4.00-5.40); WHITE BLOOD COUNT 6.7 10^3/uL (4.0-10.0)
[2023-05-16 10:02] LABS: ALKALINE PHOSPHATASE 91 U/L (46-116); ALT/SGPT < 9 U/L (7.0-40); AST/SGOT 15 U/L (<34); BILIRUBIN,TOTAL 0.6 MG/DL (0.3-1.2); BLOOD UREA NITROGEN 39 MG/DL (9-23); CALCIUM LEVEL 9.1 MG/DL (8.3-10.6); CARBON DIOXIDE LEVEL 26 MMOL/L (20-31); CHLORIDE LEVEL 112 MMOL/L (98-107); CREATININE FOR GFR 1.53 MG/DL (0.55-1.30); GLOMERULAR FILTRATION RATE 34.1 (>32); GLUCOSE, FASTING 84 MG/DL (74-106); POTASSIUM SERUM 4.9 MMOL/L (3.5-5.1); SODIUM LEVEL 145 MMOL/L (136-145); TOTAL PROTEIN 6.2 G/DL (5.7-8.2)
== END ==
LOC: SKLAB8 07:00
PROVIDERS: ATTEND Internal Medicine
DX: N18.9 Chronic kidney disease, unspecified (principal)

== ENCOUNTER → 2023-05-16 | Outpatient (REF) | payer MEDICARE | LOC: SKLAB8 07:00 | PROVIDERS: ATTEND Internal Medicine | DX: Z53.8 Procedure and treatment not carried out for other reasons (principal) ==

== ENCOUNTER → 2023-11-14 | Outpatient (REF) | payer MEDICARE ==
[~2023-11-14] MED LIST changes: -HYDR25TA PO; +HYDR25TA88 PO
[2023-11-14 08:32] LABS: HEMATOCRIT 39.1 % (36.0-47.0); HEMOGLOBIN 12.7 g/dl (12.0-15.5); MEAN CORPUSCULAR HEMOGLOBIN 32.2 pg (27.0-33.0); MEAN CORPUSCULAR HGB CONC 32.5 g/dl (32.0-36.5); MEAN CORPUSCULAR VOLUME 99.2 fl (80.0-96.0); PLATELET COUNT, AUTOMATED 235 10^3/uL (150-450); RED BLOOD COUNT 3.94 10^6/uL (4.00-5.40); WHITE BLOOD COUNT 7.3 10^3/uL (4.0-10.0)
[2023-11-14 09:04] LABS: ALBUMIN 2.9 G/DL (3.2-5.2); ALKALINE PHOSPHATASE 92 U/L (46-116); ALT/SGPT < 9 U/L (7.0-40); AST/SGOT 12 U/L (<34); BILIRUBIN,TOTAL 0.3 MG/DL (0.3-1.2); BLOOD UREA NITROGEN 33 MG/DL (9-23); CALCIUM LEVEL 9.2 MG/DL (8.3-10.6); CARBON DIOXIDE LEVEL 23 MMOL/L (20-31); CHLORIDE LEVEL 114 MMOL/L (98-107); CREATININE FOR GFR 1.47 MG/DL (0.55-1.30); GLOMERULAR FILTRATION RATE 35.7 (>32); GLUCOSE, FASTING 122 MG/DL (74-106); POTASSIUM SERUM 4.4 MMOL/L (3.5-5.1); SODIUM LEVEL 145 MMOL/L (136-145); TOTAL PROTEIN 6.1 G/DL (5.7-8.2)
== END ==
LOC: SKLAB8 07:04
PROVIDERS: ATTEND Internal Medicine
DX: N18.9 Chronic kidney disease, unspecified (principal)

== ENCOUNTER → 2024-04-21 | Outpatient (REF) | payer MEDICARE ==
[2024-04-21 08:33] LABS: HEMATOCRIT 34.1 % (36.0-47.0); HEMOGLOBIN 11.1 g/dl (12.0-15.5); MEAN CORPUSCULAR HGB CONC 32.6 g/dl (32.0-36.5); MEAN CORPUSCULAR VOLUME 98.3 fl (80.0-96.0); PLATELET COUNT, AUTOMATED 277 10^3/uL (150-450); RED BLOOD COUNT 3.47 10^6/uL (4.00-5.40); WHITE BLOOD COUNT 10.4 10^3/uL (4.0-10.0)
[2024-04-21 08:57] LABS: CALCIUM LEVEL 8.6 MG/DL (8.3-10.6); CREATININE FOR GFR 3.69 MG/DL (0.55-1.30); GLOMERULAR FILTRATION RATE 12.3 (>32); POTASSIUM SERUM 5.1 MMOL/L (3.5-5.1)
== END ==
LOC: SKLAB8 06:31
PROVIDERS: ATTEND Internal Medicine
DX: R06.02 Shortness of breath (principal)

== ENCOUNTER → 2024-04-21 | Outpatient (REF) | payer MEDICARE | LOC: SKLAB8 13:27 | PROVIDERS: ATTEND Internal Medicine | DX: R06.02 Shortness of breath (principal); Z95.828 Presence of other vascular implants and grafts ==

== ENCOUNTER → 2024-04-22 | Outpatient (REF) | payer MEDICARE ==
[2024-04-22 11:44] LABS: HEMATOCRIT 34.7 % (36.0-47.0); HEMOGLOBIN 11.4 g/dl (12.0-15.5); MEAN CORPUSCULAR HEMOGLOBIN 32.5 pg (27.0-33.0); MEAN CORPUSCULAR HGB CONC 32.9 g/dl (32.0-36.5); MEAN CORPUSCULAR VOLUME 98.9 fl (80.0-96.0); PLATELET COUNT, AUTOMATED 303 10^3/uL (150-450); RED BLOOD COUNT 3.51 10^6/uL (4.00-5.40); WHITE BLOOD COUNT 11.3 10^3/uL (4.0-10.0)
[2024-04-22 12:00] LABS: CALCIUM LEVEL 8.9 MG/DL (8.3-10.6); CREATININE FOR GFR 3.48 MG/DL (0.55-1.30); GLOMERULAR FILTRATION RATE 13.2 (>32)
== END ==
LOC: SKLAB8 10:33
PROVIDERS: ATTEND Internal Medicine
DX: R06.02 Shortness of breath (principal)

== ENCOUNTER → 2024-04-24 | Outpatient (REF) | payer MEDICARE ==
[2024-04-24 07:36] LABS: HEMATOCRIT 34.9 % (36.0-47.0); HEMOGLOBIN 11.3 g/dl (12.0-15.5); MEAN CORPUSCULAR HEMOGLOBIN 31.5 pg (27.0-33.0); MEAN CORPUSCULAR HGB CONC 32.4 g/dl (32.0-36.5); MEAN CORPUSCULAR VOLUME 97.2 fl (80.0-96.0); PLATELET COUNT, AUTOMATED 326 10^3/uL (150-450); RED BLOOD COUNT 3.59 10^6/uL (4.00-5.40); WHITE BLOOD COUNT 13.2 10^3/uL (4.0-10.0)
[2024-04-24 08:00] LABS: CALCIUM LEVEL 9.2 MG/DL (8.3-10.6); CREATININE FOR GFR 3.21 MG/DL (0.55-1.30); GLOMERULAR FILTRATION RATE 14.5 (>32); POTASSIUM SERUM 5.4 MMOL/L (3.5-5.1)
== END ==
LOC: SKLAB8 07:00
PROVIDERS: ATTEND Internal Medicine
DX: E86.0 Dehydration (principal)

== ENCOUNTER → 2024-04-27 | Outpatient (REF) | payer MEDICARE ==
[2024-04-27 11:29] LABS: HEMATOCRIT 35.6 % (36.0-47.0); HEMOGLOBIN 11.7 g/dl (12.0-15.5); MEAN CORPUSCULAR HEMOGLOBIN 32.8 pg (27.0-33.0); MEAN CORPUSCULAR HGB CONC 32.9 g/dl (32.0-36.5); MEAN CORPUSCULAR VOLUME 99.7 fl (80.0-96.0); PLATELET COUNT, AUTOMATED 337 10^3/uL (150-450); RED BLOOD COUNT 3.57 10^6/uL (4.00-5.40); WHITE BLOOD COUNT 15.1 10^3/uL (4.0-10.0)
[2024-04-27 11:35] LABS: CALCIUM LEVEL 9.5 MG/DL (8.3-10.6); CREATININE FOR GFR 2.69 MG/DL (0.55-1.30); GLOMERULAR FILTRATION RATE 17.7 (>32); POTASSIUM SERUM 5.5 MMOL/L (3.5-5.1)
== END ==
LOC: SKLAB8 10:24
PROVIDERS: ATTEND Internal Medicine
DX: E87.6 Hypokalemia (principal)

== ENCOUNTER → 2024-04-29 | Outpatient (REF) | payer MEDICARE ==
[~2024-04-29] MED LIST changes: -POTA10808 PO; +POTA10809 PO
[2024-04-29 08:07] LABS: HEMATOCRIT 39.3 % (36.0-47.0); HEMOGLOBIN 12.7 g/dl (12.0-15.5); MEAN CORPUSCULAR HEMOGLOBIN 32.1 pg (27.0-33.0); MEAN CORPUSCULAR HGB CONC 32.3 g/dl (32.0-36.5); MEAN CORPUSCULAR VOLUME 99.2 fl (80.0-96.0); PLATELET COUNT, AUTOMATED 336 10^3/uL (150-450); RED BLOOD COUNT 3.96 10^6/uL (4.00-5.40); WHITE BLOOD COUNT 10.9 10^3/uL (4.0-10.0)
[2024-04-29 08:37] LABS: CALCIUM LEVEL 9.3 MG/DL (8.3-10.6); CREATININE FOR GFR 2.43 MG/DL (0.55-1.30); GLOMERULAR FILTRATION RATE 19.9 (>32); POTASSIUM SERUM 4.9 MMOL/L (3.5-5.1)
== END ==
LOC: SKLAB8 07:00
PROVIDERS: ATTEND Internal Medicine
DX: N17.9 Acute kidney failure, unspecified (principal)

== ENCOUNTER → 2024-05-04 | Outpatient (REF) | payer MEDICARE ==
[2024-05-04 11:23] LABS: HEMATOCRIT 37.1 % (36.0-47.0); HEMOGLOBIN 12.1 g/dl (12.0-15.5); MEAN CORPUSCULAR HEMOGLOBIN 32.2 pg (27.0-33.0); MEAN CORPUSCULAR HGB CONC 32.6 g/dl (32.0-36.5); MEAN CORPUSCULAR VOLUME 98.7 fl (80.0-96.0); PLATELET COUNT, AUTOMATED 265 10^3/uL (150-450); RED BLOOD COUNT 3.76 10^6/uL (4.00-5.40); WHITE BLOOD COUNT 8.1 10^3/uL (4.0-10.0)
[2024-05-04 11:49] LABS: CALCIUM LEVEL 9.2 MG/DL (8.3-10.6); CREATININE FOR GFR 2.41 MG/DL (0.55-1.30); GLOMERULAR FILTRATION RATE 20.1 (>32); POTASSIUM SERUM 5.8 MMOL/L (3.5-5.1)
== END ==
LOC: SKLAB8 07:00
PROVIDERS: ATTEND Internal Medicine
DX: N17.9 Acute kidney failure, unspecified (principal)

== ENCOUNTER → 2024-05-05 | Outpatient (REF) | payer MEDICARE | LOC: SKLAB8 08:22 | PROVIDERS: ATTEND Internal Medicine | DX: E87.5 Hyperkalemia (principal) ==

== ENCOUNTER → 2024-05-19 | Outpatient (REF) | payer MEDICARE ==
[2024-05-19 08:46] LABS: HEMATOCRIT 36.5 % (36.0-47.0); HEMOGLOBIN 11.4 g/dl (12.0-15.5); MEAN CORPUSCULAR HEMOGLOBIN 31.1 pg (27.0-33.0); MEAN CORPUSCULAR HGB CONC 31.2 g/dl (32.0-36.5); MEAN CORPUSCULAR VOLUME 99.7 fl (80.0-96.0); PLATELET COUNT, AUTOMATED 208 10^3/uL (150-450); RED BLOOD COUNT 3.66 10^6/uL (4.00-5.40); WHITE BLOOD COUNT 8.3 10^3/uL (4.0-10.0)
[2024-05-19 09:12] LABS: ALBUMIN 2.5 G/DL (3.2-5.2); ALKALINE PHOSPHATASE 90 U/L (35-104); ALT/SGPT < 9 U/L (7.0-40); AST/SGOT 12 U/L (<34); BILIRUBIN,TOTAL 0.2 MG/DL (0.3-1.2); BLOOD UREA NITROGEN 44 MG/DL (9-23); CALCIUM LEVEL 9.3 MG/DL (8.3-10.6); CARBON DIOXIDE LEVEL 24 MMOL/L (20-31); CHLORIDE LEVEL 111 MMOL/L (98-107); CREATININE FOR GFR 2.02 MG/DL (0.55-1.30); GLOMERULAR FILTRATION RATE 24.7 (>32); GLUCOSE, FASTING 78 MG/DL (74-106); POTASSIUM SERUM 5.2 MMOL/L (3.5-5.1); SODIUM LEVEL 143 MMOL/L (136-145); TOTAL PROTEIN 5.8 G/DL (5.7-8.2)
== END ==
LOC: SKLAB8 07:00
PROVIDERS: ATTEND Internal Medicine
DX: Z79.01 Long term (current) use of anticoagulants (principal)

== ENCOUNTER → 2024-06-18 | Outpatient (REF) | payer MEDICARE ==
[2024-06-18 07:07] LABS: HEMATOCRIT 41.8 % (36.0-47.0); HEMOGLOBIN 13.1 g/dl (12.0-15.5); MEAN CORPUSCULAR HEMOGLOBIN 32.1 pg (27.0-33.0); MEAN CORPUSCULAR HGB CONC 31.3 g/dl (32.0-36.5); MEAN CORPUSCULAR VOLUME 102.5 fl (80.0-96.0); PLATELET COUNT, AUTOMATED 211 10^3/uL (150-450); RED BLOOD COUNT 4.08 10^6/uL (4.00-5.40); WHITE BLOOD COUNT 8.2 10^3/uL (4.0-10.0)
[2024-06-18 07:59] LABS: CALCIUM LEVEL 9.1 MG/DL (8.3-10.6); CREATININE FOR GFR 1.69 MG/DL (0.55-1.30); GLOMERULAR FILTRATION RATE 30.3 (>32); POTASSIUM SERUM 5.1 MMOL/L (3.5-5.1)
== END ==
LOC: SKLAB8 06:17
PROVIDERS: ATTEND Internal Medicine
DX: N18.9 Chronic kidney disease, unspecified (principal)

== ENCOUNTER → 2024-07-14 | Outpatient (REF) | payer MEDICARE ==
[2024-07-14 08:37] LABS: MEAN CORPUSCULAR HEMOGLOBIN 31.8 pg (27.0-33.0); MEAN CORPUSCULAR HGB CONC 32.5 g/dl (32.0-36.5); MEAN CORPUSCULAR VOLUME 97.8 fl (80.0-96.0); PLATELET COUNT, AUTOMATED 277 10^3/uL (150-450); RED BLOOD COUNT 4.09 10^6/uL (4.00-5.40); WHITE BLOOD COUNT 8.7 10^3/uL (4.0-10.0)
[2024-07-14 09:10] LABS: ALBUMIN 2.8 G/DL (3.2-5.2); ALKALINE PHOSPHATASE 84 U/L (35-104); ALT/SGPT < 9 U/L (7.0-40); AST/SGOT 19 U/L (<34); BILIRUBIN,TOTAL 0.4 MG/DL (0.3-1.2); BLOOD UREA NITROGEN 38 MG/DL (9-23); CALCIUM LEVEL 9.2 MG/DL (8.3-10.6); CARBON DIOXIDE LEVEL 20 MMOL/L (20-31); CHLORIDE LEVEL 114 MMOL/L (98-107); CREATININE FOR GFR 2.28 MG/DL (0.55-1.30); GLOMERULAR FILTRATION RATE 21.5 (>32); GLUCOSE, FASTING 77 MG/DL (74-106); POTASSIUM SERUM 4.8 MMOL/L (3.5-5.1); SODIUM LEVEL 145 MMOL/L (136-145); TOTAL PROTEIN 6.4 G/DL (5.7-8.2)
== END ==
LOC: SKLAB8 06:40
PROVIDERS: ATTEND Internal Medicine
DX: N18.9 Chronic kidney disease, unspecified (principal)

== ENCOUNTER → 2024-07-17 | Outpatient (REF) | payer MEDICARE ==
[2024-07-17 11:03] LABS: HEMATOCRIT 41.9 % (36.0-47.0); HEMOGLOBIN 13.2 g/dl (12.0-15.5); MEAN CORPUSCULAR HEMOGLOBIN 30.8 pg (27.0-33.0); MEAN CORPUSCULAR HGB CONC 31.5 g/dl (32.0-36.5); MEAN CORPUSCULAR VOLUME 97.7 fl (80.0-96.0); PLATELET COUNT, AUTOMATED 307 10^3/uL (150-450); RED BLOOD COUNT 4.29 10^6/uL (4.00-5.40); WHITE BLOOD COUNT 17.2 10^3/uL (4.0-10.0)
[2024-07-17 11:30] LABS: CALCIUM LEVEL 9.7 MG/DL (8.3-10.6); CREATININE FOR GFR 1.72 MG/DL (0.55-1.30); GLOMERULAR FILTRATION RATE 29.7 (>32); POTASSIUM SERUM 5.2 MMOL/L (3.5-5.1)
== END ==
LOC: SKLAB8 07:00
PROVIDERS: ATTEND Internal Medicine
DX: N17.9 Acute kidney failure, unspecified (principal)

== ENCOUNTER → 2024-07-20 | Outpatient (REF) | payer MEDICARE ==
[2024-07-20 11:23] LABS: HEMATOCRIT 41.6 % (36.0-47.0); HEMOGLOBIN 13.5 g/dl (12.0-15.5); MEAN CORPUSCULAR HEMOGLOBIN 31.8 pg (27.0-33.0); MEAN CORPUSCULAR HGB CONC 32.5 g/dl (32.0-36.5); MEAN CORPUSCULAR VOLUME 98.1 fl (80.0-96.0); PLATELET COUNT, AUTOMATED 273 10^3/uL (150-450); RED BLOOD COUNT 4.24 10^6/uL (4.00-5.40); WHITE BLOOD COUNT 20.7 10^3/uL (4.0-10.0)
[2024-07-20 11:55] LABS: CALCIUM LEVEL 9.1 MG/DL (8.3-10.6); CREATININE FOR GFR 2.15 MG/DL (0.55-1.30); POTASSIUM SERUM 4.8 MMOL/L (3.5-5.1)
== END ==
LOC: SKLAB8 07:00
PROVIDERS: ATTEND Internal Medicine
DX: N17.9 Acute kidney failure, unspecified (principal); D72.829 Elevated white blood cell count, unspecified

== ENCOUNTER → 2024-07-22 | Outpatient (REF) | payer MEDICARE ==
[2024-07-22 14:15] LABS: BASO # 0.1 10^3/uL (0.0-0.2); BASO % 0.5 % (0.0-1.0); EOS # 0.2 10^3/uL (0.0-0.5); EOS % 1.2 % (0.0-3.0); HEMATOCRIT 41.3 % (36.0-47.0); HEMOGLOBIN 13.3 g/dl (12.0-15.5); LYMPH # 1.8 10^3/uL (1.5-5.0); LYMPH % 14.1 % (24.0-44.0); MEAN CORPUSCULAR HEMOGLOBIN 31.1 pg (27.0-33.0); MEAN CORPUSCULAR HGB CONC 32.2 g/dl (32.0-36.5); MEAN CORPUSCULAR VOLUME 96.7 fl (80.0-96.0); MONO # 1.8 10^3/uL (0.0-0.8); MONO % 14.1 % (2.0-8.0); NEUTROPHILS % 69.5 % (36.0-66.0); PLATELET COUNT, AUTOMATED 344 10^3/uL (150-450); RED BLOOD COUNT 4.27 10^6/uL (4.00-5.40); WHITE BLOOD COUNT 12.9 10^3/uL (4.0-10.0)
[2024-07-22 14:47] LABS: CALCIUM LEVEL 9.2 MG/DL (8.3-10.6); CREATININE FOR GFR 2.38 MG/DL (0.55-1.30); GLOMERULAR FILTRATION RATE 20.4 (>32); POTASSIUM SERUM 4.7 MMOL/L (3.5-5.1)
== END ==
LOC: SKLAB8 07:00
PROVIDERS: ATTEND Internal Medicine
DX: D72.829 Elevated white blood cell count, unspecified (principal)

== ENCOUNTER → 2024-08-03 | Outpatient (REF) | payer MEDICARE ==
[2024-08-03 08:07] LABS: HEMATOCRIT 40.8 % (36.0-47.0); HEMOGLOBIN 13.2 g/dl (12.0-15.5); MEAN CORPUSCULAR HEMOGLOBIN 31.4 pg (27.0-33.0); MEAN CORPUSCULAR HGB CONC 32.4 g/dl (32.0-36.5); MEAN CORPUSCULAR VOLUME 97.1 fl (80.0-96.0); PLATELET COUNT, AUTOMATED 314 10^3/uL (150-450); WHITE BLOOD COUNT 10.7 10^3/uL (4.0-10.0)
[2024-08-03 08:30] LABS: CALCIUM LEVEL 9.1 MG/DL (8.3-10.6); CREATININE FOR GFR 1.99 MG/DL (0.55-1.30); GLOMERULAR FILTRATION RATE 25.1 (>32); POTASSIUM SERUM 4.4 MMOL/L (3.5-5.1)
== END ==
LOC: SKLAB8 07:08
PROVIDERS: ATTEND Internal Medicine
DX: N18.9 Chronic kidney disease, unspecified (principal)

== ENCOUNTER → 2024-08-14 | Outpatient (REF) | payer MEDICARE ==
[2024-08-14 08:10] LABS: HEMATOCRIT 39.1 % (36.0-47.0); HEMOGLOBIN 12.4 g/dl (12.0-15.5); MEAN CORPUSCULAR HEMOGLOBIN 31.6 pg (27.0-33.0); MEAN CORPUSCULAR HGB CONC 31.7 g/dl (32.0-36.5); MEAN CORPUSCULAR VOLUME 99.5 fl (80.0-96.0); PLATELET COUNT, AUTOMATED 243 10^3/uL (150-450); RED BLOOD COUNT 3.93 10^6/uL (4.00-5.40); WHITE BLOOD COUNT 8.7 10^3/uL (4.0-10.0)
[2024-08-14 08:41] LABS: ALBUMIN 2.8 G/DL (3.2-5.2); ALKALINE PHOSPHATASE 79 U/L (35-104); ALT/SGPT < 9 U/L (7.0-40); AST/SGOT 16 U/L (<34); BILIRUBIN,TOTAL 0.3 MG/DL (0.3-1.2); BLOOD UREA NITROGEN 45 MG/DL (9-23); CALCIUM LEVEL 9.2 MG/DL (8.3-10.6); CARBON DIOXIDE LEVEL 27 MMOL/L (20-31); CHLORIDE LEVEL 108 MMOL/L (98-107); CREATININE FOR GFR 1.79 MG/DL (0.55-1.30); GLOMERULAR FILTRATION RATE 28.4 (>32); GLUCOSE, FASTING 81 MG/DL (74-106); POTASSIUM SERUM 4.2 MMOL/L (3.5-5.1); SODIUM LEVEL 144 MMOL/L (136-145); TOTAL PROTEIN 6.6 G/DL (5.7-8.2)
== END ==
LOC: SKLAB8 06:47
PROVIDERS: ATTEND Internal Medicine
DX: N18.9 Chronic kidney disease, unspecified (principal)

== ENCOUNTER → 2024-09-10 | Outpatient (REF) | payer MEDICARE ==
[2024-09-10 07:45] LABS: HEMATOCRIT 36.9 % (36.0-47.0); HEMOGLOBIN 12.4 g/dl (12.0-15.5); MEAN CORPUSCULAR HEMOGLOBIN 31.7 pg (27.0-33.0); MEAN CORPUSCULAR HGB CONC 33.6 g/dl (32.0-36.5); MEAN CORPUSCULAR VOLUME 94.4 fl (80.0-96.0); PLATELET COUNT, AUTOMATED 293 10^3/uL (150-450); RED BLOOD COUNT 3.91 10^6/uL (4.00-5.40); WHITE BLOOD COUNT 9.1 10^3/uL (4.0-10.0)
[2024-09-10 08:22] LABS: ALBUMIN 2.3 G/DL (3.2-5.2); ALKALINE PHOSPHATASE 69 U/L (35-104); ALT/SGPT < 9 U/L (7.0-40); AST/SGOT 16 U/L (<34); BILIRUBIN,TOTAL 0.2 MG/DL (0.3-1.2); BLOOD UREA NITROGEN 52 MG/DL (9-23); CALCIUM LEVEL 9.2 MG/DL (8.3-10.6); CARBON DIOXIDE LEVEL 23 MMOL/L (20-31); CHLORIDE LEVEL 110 MMOL/L (98-107); CREATININE FOR GFR 1.68 MG/DL (0.55-1.30); GLOMERULAR FILTRATION RATE 28.9 (>32); GLUCOSE, FASTING 95 MG/DL (74-106); SODIUM LEVEL 143 MMOL/L (136-145); TOTAL PROTEIN 6.1 G/DL (5.7-8.2)
== END ==
LOC: SKLAB8 07:00
PROVIDERS: ATTEND Internal Medicine
DX: N18.9 Chronic kidney disease, unspecified (principal)

== ENCOUNTER → 2024-10-08 | Outpatient (REF) | payer MEDICARE ==
[~2024-10-08] MED LIST changes: -FLOM0.4C39 PO; +TAMS-18 PO
[2024-10-08 09:51] LABS: HEMATOCRIT 40.6 % (36.0-47.0); HEMOGLOBIN 12.8 g/dl (12.0-15.5); MEAN CORPUSCULAR HEMOGLOBIN 30.6 pg (27.0-33.0); MEAN CORPUSCULAR HGB CONC 31.5 g/dl (32.0-36.5); MEAN CORPUSCULAR VOLUME 97.1 fl (80.0-96.0); PLATELET COUNT, AUTOMATED 209 10^3/uL (150-450); RED BLOOD COUNT 4.18 10^6/uL (4.00-5.40); WHITE BLOOD COUNT 6.8 10^3/uL (4.0-10.0)
[2024-10-08 10:24] LABS: ALBUMIN 3.1 G/DL (3.2-5.2); ALKALINE PHOSPHATASE 70 U/L (35-104); ALT/SGPT < 9 U/L (7.0-40); AST/SGOT 18 U/L (<34); BILIRUBIN,TOTAL 0.5 MG/DL (0.3-1.2); BLOOD UREA NITROGEN 41 MG/DL (9-23); CALCIUM LEVEL 9.4 MG/DL (8.3-10.6); CARBON DIOXIDE LEVEL 25 MMOL/L (20-31); CHLORIDE LEVEL 109 MMOL/L (98-107); CREATININE FOR GFR 1.69 MG/DL (0.55-1.30); GLOMERULAR FILTRATION RATE 28.7 (>32); GLUCOSE, FASTING 91 MG/DL (74-106); POTASSIUM SERUM 4.8 MMOL/L (3.5-5.1); SODIUM LEVEL 144 MMOL/L (136-145); TOTAL PROTEIN 6.8 G/DL (5.7-8.2)
== END ==
LOC: SKLAB8 07:21
PROVIDERS: ATTEND Internal Medicine
DX: N18.9 Chronic kidney disease, unspecified (principal)